=== PATIENT | male | born 1965 | race Caucasian/White ===

== ENCOUNTER 2022-03-29 09:30 | Inpatient (IN) | payer OTHER, SELFPAY ==
[2022-03-29] MEDS ORDERED: Thiamine HCl 200 MG/2 ML VIAL ONE (11:10)
[2022-03-29] MEDS ORDERED: Folic Acid 1 MG TAB ONE (11:10)
[2022-03-29 11:42] LABS: Acetaminophen Less than 10.0 mcg/mL (10.0-30.0); Alcohol Less than 10 mg/dL (Less than 10); Lipase 29 U/L (8-78); Salicylate Less than 8.0 mg/dL (15.0-30.0)
[2022-03-29 11:43] LABS: ALT (SGPT) 287 U/L (8-55); AST (SGOT) 1661 U/L (5-34); Albumin 2.7 g/dL (3.5-5.0); Alkaline Phosphatase 66 U/L (40-110); Anion Gap 26 mmol/L (10-20); BUN (Urea Nitrogen) 63 mg/dL (8.4-25.7); Bilirubin, Total 2.4 mg/dL (0.2-1.2); Calc. Creatinine Clearance 0 mL/min (70-130); Carbon Dioxide 12 mmol/L (22-29); Chloride 93 mmol/L (98-107); Estimated GFR 21; Globulin 2.5 g/dL (2.4-3.5); Glucose 89 mg/dL (70-105); Magnesium 1.6 mg/dL (1.6-2.6); Potassium 3.7 mmol/L (3.5-5.1); Protein, Total 5.2 g/dL (6.0-8.3); Sodium 127 mmol/L (136-145)
[2022-03-29] MEDS ORDERED: chlordiazePOXIDE HCl 25 MG CAP ONE (11:47)
[2022-03-29 11:55] LABS: Hemoglobin 15.8 g/dL (13.5-17.5); Mean Corpuscular HGB CONC 35.2 g/dL (32.0-36.0); Mean Corpuscular Hemoglobin 30.3 pg (27.0-33.0); Platelet Count 26 10x3/uL (150-450); RBC Distribution Width 14.3 % (11.5-14.5); Red Blood Cell (RBC) Count 5.14 10x6/uL (4.32-5.72); White Blood Cell (WBC) Count 4.6 10x3/uL (3.5-10.5)
[2022-03-29 12:03] LABS: Band 18 % (5-11); Eosinophils 1 % (0-10); Lymphocytes 3 % (21-51); Monocytes 6 % (0-10); Neutrophil 72 % (42-75)
[2022-03-29 12:07] LABS: MDiff Complete? YES
[2022-03-29 12:08] LABS: Platelet Morphology Comment Appears Decreased; RBC Morphology Normal
[2022-03-29] MEDS ORDERED: metroNIDAZOLE 500 MG/100 ML BAG ONE ×2 (12:14→23:01)
[2022-03-29 12:35] LABS: INR-International Normal Ratio 1.3; Prothrombin Time 13.9 sec (9.5-12.1)
[2022-03-29 15:02] LABS: Lactic Acid 6.8 mmol/L (0.5-2.2)
[2022-03-29 16:38] LABS: Bilirubin 3+ (Negative); Blood, Urine 250 (Negative); Clarity Cloudy (Clear); Glucose, Urine (Dipstick) Normal (Negative); Ketone, Urine 5 mg/dL (Negative); Leukocyte 25 (Negative); Nitrite Positive (Negative); Protein, Urine (Dipstick) 100 mg/dl (Neg-Trace)
[2022-03-29 16:47] LABS: Amphetamine Not Detected (NotDetected); Barbiturates Screen Not Detected (NotDetected); Benzodiazepine Screen Not Detected (NotDetected); Cocaine Metabolite Screen Not Detected (NotDetected); Methadone Not Detected (NotDetected); Methamphetamine Not Detected (NotDetected); Opiate Screen Detected (NotDetected); Oxycodone Screen Not Detected (NotDetected); Phencyclidine (PCP) Not Detected (NotDetected); THC/Cannabinoid Screen Not Detected (NotDetected); Tricyclic Screen Not Detected (NotDetected)
[2022-03-29 17:32] LABS: Bacteria/HPF 3+ HPF (None Seen)
[2022-03-29] MEDS ORDERED: Lorazepam 1 MG TAB PO PRN (19:04)
[2022-03-29] MEDS ORDERED: Ondansetron ODT 4 MG TAB PO PRN (19:04)
[2022-03-29] MEDS ORDERED: Lorazepam 2 MG/ML VIAL IM PRN (19:04)
[2022-03-29] MEDS ORDERED: Thiamine HCl 200 MG/2 ML VIAL SLOW IVP SCH (19:15)
[2022-03-29] MEDS ORDERED: Electrolyte Replacement Protocol 1 EACH FS SCH (19:15)
[2022-03-29] MEDS ORDERED: Lorazepam 1 MG TAB ONE (19:34)
[2022-03-29] MEDS ORDERED: Ondansetron PF 4 MG/2 ML Vial IVP PRN (20:33)
[2022-03-29] MEDS ORDERED: Famotidine/PF 20 mg/2ml Vial SLOW IVP SCH (21:00)
[2022-03-29] MEDS ORDERED: chlordiazePOXIDE HCl 25 MG CAP PO SCH ×2 (21:00→23:00)
[2022-03-29] MEDS: metroNIDAZOLE 500 MG in Premix Bag 1 BAG IVPB SCH (23:07)
[2022-03-29 23:23] LABS: Lactic Acid 4.6 mmol/L (0.5-2.2)
[2022-03-29] MEDS: Lorazepam 1 MG TAB PO SCH (23:35)
[2022-03-29] MEDS ORDERED: Lactated Ringer's 1,000 ML IV SCH (23:45)
[2022-03-29] MEDS ORDERED: VANCOMYCIN 1.75 GM/350 ML BAG IVPB SCH (23:45)
[2022-03-30] MEDS ORDERED: VANCOMYCIN 1.75 GM/350 ML BAG 1.75 GM in Premix Bag 1 BAG IVPB SCH (00:01)
[2022-03-30] MEDS ORDERED: Dextrose 50% Abboject 50 ML SYRINGE ONE (00:06)
[2022-03-30] MEDS: Dextrose 50% Abboject 50 ML SYRINGE SLOW IVP PRN ×2 (00:20→10:15)
[2022-03-30] MEDS: Cefepime 2 GM in Sodium Chloride 0.9% 100 ML IVPB SCH (01:52)
[2022-03-30] MEDS: Dextrose 5 % And 0.9 % NaCl 1,000 ML IV SCH ×2 (03:12→17:03)
[2022-03-30 04:35] LABS: #Monocytes 0.3 10x3/uL (0.0-1.1); %Basophils 0.4 % (0.0-2.0); %Eosinophils 0.1 % (0.0-6.0); %Lymphocytes 4.3 % (18.0-47.0); %Monocytes 4.5 % (0.0-10.0); %Neutrophils 88.5 % (40.0-75.0); Hemoglobin 14.7 g/dL (13.5-17.5); Mean Corpuscular HGB CONC 36.9 g/dL (32.0-36.0); Mean Corpuscular Hemoglobin 30.8 pg (27.0-33.0); Mean Corpuscular Volume 83.3 fl (81.2-95.1); Platelet Count 10 10x3/uL (150-450); RBC Distribution Width 14.2 % (11.5-14.5); Red Blood Cell (RBC) Count 4.78 10x6/uL (4.32-5.72); White Blood Cell (WBC) Count 6.7 10x3/uL (3.5-10.5)
[2022-03-30 04:36] LABS: MDiff Complete? YES
[2022-03-30 04:41] LABS: ALT (SGPT) 188 U/L (8-55); AST (SGOT) 787 U/L (5-34); Albumin 2.1 g/dL (3.5-5.0); Alkaline Phosphatase 64 U/L (40-110); Anion Gap 22 mmol/L (10-20); BUN (Urea Nitrogen) 71 mg/dL (8.4-25.7); Bilirubin, Total 3.5 mg/dL (0.2-1.2); Calc. Creatinine Clearance 30 mL/min (70-130); Calcium 7.6 mg/dL (7.8-10.44); Carbon Dioxide 13 mmol/L (22-29); Chloride 99 mmol/L (98-107); Estimated GFR 23; Globulin 2.3 g/dL (2.4-3.5); Glucose 68 mg/dL (70-105); Magnesium 1.5 mg/dL (1.6-2.6); Phosphorus 3.2 mg/dL (2.3-4.7); Potassium 3.4 mmol/L (3.5-5.1); Protein, Total 4.4 g/dL (6.0-8.3); Sodium 131 mmol/L (136-145)
[2022-03-30] MEDS: Lorazepam 1 MG TAB PO SCH ×4 (05:14→20:05)
[2022-03-30] MEDS ORDERED: Vancomycin DOSE BY LEVEL IVPB PRN (06:09)
[2022-03-30 06:38] LABS: Band 5 % (5-11); Eosinophils 1 % (0-10); Lymphocytes 2 % (21-51); Monocytes 28 % (0-10); Neutrophil 64 % (42-75)
[2022-03-30 06:45] LABS: Crenated RBC SLIGHT = 1-5 cells (100X) (None Seen); Platelet Morphology Comment Appears Decreased; Polychromasia SLIGHT = 2-3 cells (100X) (0-2/hpf); Schistocytes SLIGHT = 2-5 cells (100X) (0-1/hpf); Tear Drops SLIGHT = 2-5 cells (100X) (0-1/hpf)
[2022-03-30] MEDS: metroNIDAZOLE 500 MG in Premix Bag 1 BAG IVPB SCH ×3 (07:38→20:46)
[2022-03-30] MEDS: Thiamine HCl 200 MG/2 ML VIAL SLOW IVP SCH (10:29)
[2022-03-30] MEDS ORDERED: Sodium Chloride 0.9% 1,000 ML IV SCH (10:45)
[2022-03-30] MEDS ORDERED: Vancomycin 1 GM in Premix Bag 1 BAG IVPB SCH (12:00)
[2022-03-30] MEDS ORDERED: Magnesium 2 GM/50 ML(in water) 2 GM in Premix Bag 1 BAG IVPB SCH (12:00)
[2022-03-30] MEDS: Folic Acid 1 MG TAB PO SCH (12:51)
[2022-03-30] MEDS: Sodium Chloride 0.9% 1,000 ML IV SCH ×2 (12:51→17:02)
[2022-03-30] MEDS: chlordiazePOXIDE HCl 25 MG CAP PO SCH ×3 (12:51→20:05)
[2022-03-30] MEDS: Multivit, Therapeutic 1 TAB PO SCH (12:51)
[2022-03-30] MEDS ORDERED: Ciprofloxacin Lactate/D5W 200 MG in Premix Bag 1 BAG IVPB SCH (14:00)
[2022-03-30 15:01] LABS: Lactic Acid 4.1 mmol/L (0.5-2.2)
[2022-03-30 18:37] LABS: Lactic Acid 3.4 mmol/L (0.5-2.2)
[2022-03-30] MEDS ORDERED: Dextrose 50% Abboject 50 ML SYRINGE SLOW IVP PRN (19:03)
[2022-03-30] MEDS ORDERED: Lorazepam 1 MG TAB PO PRN (19:04)
[2022-03-30] MEDS: Famotidine/PF 20 mg/2ml Vial SLOW IVP SCH (20:57)
[2022-03-30] MEDS: Dextrose 5 %-0.45 % NaCl 1,000 ML IV SCH (22:30)
[2022-03-31 00:16] LABS: Vancomycin, Random 18.9 ug/mL (See Comment)
[2022-03-31] MEDS ORDERED: Vancomycin DOSE BY LEVEL IVPB PRN (00:36)
[2022-03-31] MEDS ORDERED: Acetylcysteine 800 MG/4 ML VIAL INH SCH (01:00)
[2022-03-31 01:38] LABS: SARS-CoV-2 NAA Rapid Test Not Detected (NotDetected)
[2022-03-31] MEDS: Ipratropium/Albuterol 3 ML NEB EZPAP PRN ×2 (02:30→08:15)
[2022-03-31] MEDS: Cefepime 2 GM in Sodium Chloride 0.9% 100 ML IVPB SCH (03:49)
[2022-03-31] MEDS: Lorazepam 1 MG TAB PO SCH ×3 (04:00→16:41)
[2022-03-31 05:22] LABS: Lactic Acid 3.3 mmol/L (0.5-2.2)
[2022-03-31 05:31] LABS: ALT (SGPT) 101 U/L (8-55); AST (SGOT) 249 U/L (5-34); Albumin 1.9 g/dL (3.5-5.0); Alkaline Phosphatase 64 U/L (40-110); Anion Gap 20 mmol/L (10-20); BUN (Urea Nitrogen) 84 mg/dL (8.4-25.7); Bilirubin, Total 2.5 mg/dL (0.2-1.2); Calc. Creatinine Clearance 28 mL/min (70-130); Calcium 7.7 mg/dL (7.8-10.44); Carbon Dioxide 13 mmol/L (22-29); Chloride 106 mmol/L (98-107); Estimated GFR 21; Globulin 2.5 g/dL (2.4-3.5); Glucose 118 mg/dL (70-105); Magnesium 2.2 mg/dL (1.6-2.6); Potassium 3.5 mmol/L (3.5-5.1); Protein, Total 4.4 g/dL (6.0-8.3); Sodium 135 mmol/L (136-145)
[2022-03-31 05:34] LABS: Hemoglobin 13.7 g/dL (13.5-17.5); Mean Corpuscular HGB CONC 36.2 g/dL (32.0-36.0); Mean Corpuscular Hemoglobin 29.9 pg (27.0-33.0); Mean Corpuscular Volume 82.5 fl (81.2-95.1); Platelet Count 11 10x3/uL (150-450); RBC Distribution Width 14.6 % (11.5-14.5); Red Blood Cell (RBC) Count 4.58 10x6/uL (4.32-5.72); White Blood Cell (WBC) Count 8.6 10x3/uL (3.5-10.5)
[2022-03-31] MEDS ORDERED: Vancomycin HCl 500 MG in Sodium Chloride 0.9% 100 ML IVPB SCH (05:45)
[2022-03-31 05:53] LABS: MDiff Complete? YES
[2022-03-31] MEDS: metroNIDAZOLE 500 MG in Premix Bag 1 BAG IVPB SCH ×3 (06:53→21:26)
[2022-03-31] MEDS: Dextrose 5 %-0.45 % NaCl 1,000 ML IV SCH ×2 (06:57→14:25)
[2022-03-31 07:09] LABS: Band 2 % (5-11); Lymphocytes 1 % (21-51); Monocytes 20 % (0-10); Neutrophil 76 % (42-75)
[2022-03-31 07:11] LABS: Crenated RBC SLIGHT = 1-5 cells (100X) (None Seen); Microcytosis SLIGHT = 6-15 cells (100X) (0-5/hpf)
[2022-03-31 07:12] LABS: Platelet Morphology Comment Appears Decreased
[2022-03-31] MEDS: Folic Acid 1 MG TAB PO SCH (08:00)
[2022-03-31] MEDS: chlordiazePOXIDE HCl 25 MG CAP PO SCH ×3 (08:00→21:26)
[2022-03-31] MEDS: Multivit, Therapeutic 1 TAB PO SCH (08:00)
[2022-03-31] MEDS: Thiamine HCl 200 MG/2 ML VIAL SLOW IVP SCH (09:26)
[2022-03-31] MEDS: Lorazepam 0.5 MG TAB PO SCH (16:42)
[2022-03-31] MEDS ORDERED: Lorazepam 1 MG TAB PO PRN (19:04)
[2022-03-31] MEDS: Famotidine/PF 20 mg/2ml Vial SLOW IVP SCH (21:26)
[2022-03-31] MEDS ORDERED: Sodium Bicarbonate 150 MEQ in Dextrose 5% in Water 1,000 ML IV SCH (23:59)
[2022-04-01] MEDS: Lorazepam 0.5 MG TAB PO SCH ×4 (01:00→17:58)
[2022-04-01] MEDS: Cefepime 2 GM in Sodium Chloride 0.9% 100 ML IVPB SCH ×2 (01:13→13:45)
[2022-04-01] MEDS: Dextrose 5 %-0.45 % NaCl 1,000 ML IV SCH (01:15)
[2022-04-01] MEDS: metroNIDAZOLE 500 MG in Premix Bag 1 BAG IVPB SCH ×3 (05:38→22:00)
[2022-04-01 06:19] LABS: Vancomycin, Random 12.3 ug/mL (See Comment)
[2022-04-01 06:24] LABS: ALT (SGPT) 68 U/L (8-55); AST (SGOT) 89 U/L (5-34); Alkaline Phosphatase 61 U/L (40-110); Anion Gap 14 mmol/L (10-20); BUN (Urea Nitrogen) 79 mg/dL (8.4-25.7); Bilirubin, Total 1.7 mg/dL (0.2-1.2); Calc. Creatinine Clearance 55 mL/min (70-130); Calcium 7.8 mg/dL (7.8-10.44); Carbon Dioxide 18 mmol/L (22-29); Chloride 113 mmol/L (98-107); Estimated GFR 48; Globulin 2.7 g/dL (2.4-3.5); Glucose 112 mg/dL (70-105); Magnesium 2.3 mg/dL (1.6-2.6); Potassium 2.9 mmol/L (3.5-5.1); Protein, Total 4.7 g/dL (6.0-8.3); Sodium 142 mmol/L (136-145)
[2022-04-01 06:26] LABS: Hemoglobin 12.2 g/dL (13.5-17.5); Mean Corpuscular HGB CONC 36.5 g/dL (32.0-36.0); Mean Corpuscular Hemoglobin 30.1 pg (27.0-33.0); Mean Corpuscular Volume 82.5 fl (81.2-95.1); Platelet Count 16 10x3/uL (150-450); Red Blood Cell (RBC) Count 4.05 10x6/uL (4.32-5.72); White Blood Cell (WBC) Count 8.9 10x3/uL (3.5-10.5)
[2022-04-01 06:44] LABS: MDiff Complete? YES
[2022-04-01 06:48] LABS: Band 11 % (5-11); Eosinophils 1 % (0-10); Lymphocytes 6 % (21-51); Monocytes 2 % (0-10); Neutrophil 80 % (42-75)
[2022-04-01 06:49] LABS: Platelet Morphology Comment Appears Decreased; RBC Morphology Normal
[2022-04-01] MEDS ORDERED: Thiamine 100 MG TAB PO SCH (09:00)
[2022-04-01] MEDS: Vancomycin HCl 1 GM in Sodium Chloride 0.9% 250 ML 250 ML IVPB SCH (09:18)
[2022-04-01] MEDS: Folic Acid 1 MG TAB PO SCH (09:18)
[2022-04-01] MEDS: Multivit, Therapeutic 1 TAB PO SCH (09:19)
[2022-04-01] MEDS ORDERED: Levothyroxine 100 MCG SDV IVP SCH (09:45)
[2022-04-01 09:53] LABS: Actual Bicarbonate (HCO3a) 20.6 mEq/L (22-28); Base Excess (BEa) -2.5 mEq/L (-2.0 to +3.0); CO2 Tension 30.7 mmHg (35.0-45.0); Calcium, Ionized (arterial) 1.14 mmol/L (1.12-1.30); Carboxyhemoglobin (COHb) 0.7 gm% (0.0-3.0); Hemoglobin (Hb) 12.8 g/dL (14.0-18.0); O2 Tension (PaO2), arterial 64.1 mmHg (80.0-100.0); Potassium - ABG Lab 2.9 mmol/L (3.70-5.30); Puncture Site RRA; pH, Arterial 7.44 (7.35-7.45)
[2022-04-01 09:57] LABS: ALV-art Gradient 47.255 mmHg (0-20)
[2022-04-01] MEDS ORDERED: Multivitamins, Adult 10 ML, Folic Acid 1 MG, Thiamine HCl 100 MG in Dextrose 5 %-0.45 %... IV SCH (10:00)
[2022-04-01] MEDS ORDERED: Furosemide 20 MG/2 ML VIAL SLOW IVP SCH (10:45)
[2022-04-01] MEDS ORDERED: Potassium Chloride 20 MEQ in Premix Bag 1 BAG IVPB SCH (10:45)
[2022-04-01] MEDS ORDERED: Thiamine HCl 200 MG/2 ML VIAL ONE (10:52)
[2022-04-01] MEDS ORDERED: Sodium Bicarb 50 MEQ/50 ML VIAL ONE (10:53)
[2022-04-01] MEDS ORDERED: Potassium Chloride 20 MEQ/100 ML PREMIX BAG ONE ×2 (10:53)
[2022-04-01] MEDS: Lorazepam 2 MG/ML VIAL SLOW IVP PRN ×2 (11:20→17:59)
[2022-04-01] MEDS ORDERED: Cefepime 2 GM VIAL ONE (13:41)
[2022-04-01] MEDS ORDERED: Acetaminophen 650 MG Suppository PR SCH (18:45)
[2022-04-01] MEDS ORDERED: Lorazepam 0.5 MG TAB PO PRN (19:04)
[2022-04-01] MEDS: Acetaminophen 650 MG Suppository PR PRN (21:58)
[2022-04-01] MEDS: Famotidine/PF 20 mg/2ml Vial SLOW IVP SCH (21:59)
[2022-04-01] MEDS ORDERED: Lactated Ringer's 1,000 ML IV SCH (22:00)
[2022-04-01] MEDS ORDERED: Potassium Phosphate 22 MMOL in Sodium Chloride 0.9% 250 ML 250 ML IVPB SCH (22:00)
[2022-04-01] MEDS: PHOS-NAK 1 PKT PACK PO SCH (23:17)
[2022-04-02] MEDS: Cefepime 2 GM in Sodium Chloride 0.9% 100 ML IVPB SCH ×2 (02:26→13:15)
[2022-04-02 04:47] LABS: Hemoglobin 12.1 g/dL (13.5-17.5); Mean Corpuscular HGB CONC 36.4 g/dL (32.0-36.0); Mean Corpuscular Hemoglobin 30.6 pg (27.0-33.0); Mean Corpuscular Volume 84.1 fl (81.2-95.1); Platelet Count 15 10x3/uL (150-450); RBC Distribution Width 15.1 % (11.5-14.5); Red Blood Cell (RBC) Count 3.95 10x6/uL (4.32-5.72); White Blood Cell (WBC) Count 7.9 10x3/uL (3.5-10.5)
[2022-04-02 04:49] LABS: ALT (SGPT) 47 U/L (8-55); AST (SGOT) 44 U/L (5-34); Albumin 1.8 g/dL (3.5-5.0); Alkaline Phosphatase 49 U/L (40-110); Anion Gap 13 mmol/L (10-20); BUN (Urea Nitrogen) 66 mg/dL (8.4-25.7); Bilirubin, Total 1.4 mg/dL (0.2-1.2); Calc. Creatinine Clearance 91 mL/min (70-130); Calcium 7.6 mg/dL (7.8-10.44); Carbon Dioxide 21 mmol/L (22-29); Chloride 119 mmol/L (98-107); Estimated GFR 88; Glucose 111 mg/dL (70-105); Magnesium 2.4 mg/dL (1.6-2.6); Phosphorus 4.6 mg/dL (2.3-4.7); Potassium 3.1 mmol/L (3.5-5.1); Protein, Total 4.8 g/dL (6.0-8.3); Sodium 150 mmol/L (136-145)
[2022-04-02] MEDS: metroNIDAZOLE 500 MG in Premix Bag 1 BAG IVPB SCH ×3 (05:26→21:01)
[2022-04-02 05:57] LABS: MDiff Complete? YES
[2022-04-02 06:04] LABS: Band 9 % (5-11); Lymphocytes 12 % (21-51); Monocytes 4 % (0-10); Neutrophil 75 % (42-75)
[2022-04-02 06:05] LABS: Platelet Morphology Comment Appears Decreased; RBC Morphology Normal
[2022-04-02] MEDS: Levothyroxine 100 MCG SDV IVP SCH (06:42)
[2022-04-02] MEDS ORDERED: Dextrose 5% in Water 1,000 ML IV SCH (08:15)
[2022-04-02] MEDS: Vancomycin HCl 1 GM in Sodium Chloride 0.9% 250 ML 250 ML IVPB SCH (09:40)
[2022-04-02] MEDS: PHOS-NAK 1 PKT PACK PO SCH ×2 (09:40→15:59)
[2022-04-02] MEDS: Famotidine/PF 20 mg/2ml Vial SLOW IVP SCH ×2 (09:42→21:01)
[2022-04-02] MEDS: Multivit, Therapeutic 1 TAB PO SCH (09:44)
[2022-04-02] MEDS: Thiamine HCl 100 MG, Admixture Fee 1 EACH in Sodium Chloride 0.9% 50 ML IVPB SCH (09:58)
[2022-04-02] MEDS: Potassium Chloride 40 MEQ, Admixture Fee 1 EACH in Dextrose 5% in Water 1,000 ML IV SCH ×2 (11:01→21:16)
[2022-04-02 14:16] LABS: Albumin 1.7 g/dL (3.5-5.0); Anion Gap 12 mmol/L (10-20); BUN (Urea Nitrogen) 61 mg/dL (8.4-25.7); BUN/Creatinine Ratio 75.31; Calc. Creatinine Clearance 112 mL/min (70-130); Calcium 7.5 mg/dL (7.8-10.44); Carbon Dioxide 22 mmol/L (22-29); Chloride 121 mmol/L (98-107); Estimated GFR 103; Glucose 115 mg/dL (70-105); Phosphorus 3.6 mg/dL (2.3-4.7); Sodium 152 mmol/L (136-145)
[2022-04-02] MEDS ORDERED: metroNIDAZOLE 500 MG/100 ML BAG ONE (15:02)
[2022-04-02] MEDS: Acetaminophen 650 MG Suppository PR PRN (21:16)
[2022-04-03] MEDS: Cefepime 2 GM in Sodium Chloride 0.9% 100 ML IVPB SCH ×2 (01:21→12:48)
[2022-04-03 05:30] LABS: #Monocytes 0.4 10x3/uL (0.0-1.1); #Neutrophils 9.8 10x3/uL (1.5-8.4); %Basophils 0.2 % (0.0-2.0); %Eosinophils 0.4 % (0.0-6.0); %Lymphocytes 8.7 % (18.0-47.0); %Monocytes 3.3 % (0.0-10.0); %Neutrophils 86.2 % (40.0-75.0); Hemoglobin 12.8 g/dL (13.5-17.5); Mean Corpuscular Hemoglobin 29.7 pg (27.0-33.0); Mean Corpuscular Volume 84.9 fl (81.2-95.1); Platelet Count 23 10x3/uL (150-450); RBC Distribution Width 15.4 % (11.5-14.5); Red Blood Cell (RBC) Count 4.31 10x6/uL (4.32-5.72); White Blood Cell (WBC) Count 11.3 10x3/uL (3.5-10.5)
[2022-04-03 05:32] LABS: ALT (SGPT) 34 U/L (8-55); AST (SGOT) 30 U/L (5-34); Albumin 1.7 g/dL (3.5-5.0); Alkaline Phosphatase 49 U/L (40-110); Anion Gap 11 mmol/L (10-20); BUN (Urea Nitrogen) 48 mg/dL (8.4-25.7); Bilirubin, Total 1.3 mg/dL (0.2-1.2); Calc. Creatinine Clearance 125 mL/min (70-130); Calcium 7.2 mg/dL (7.8-10.44); Carbon Dioxide 20 mmol/L (22-29); Chloride 124 mmol/L (98-107); Estimated GFR 106; Globulin 3.5 g/dL (2.4-3.5); Glucose 163 mg/dL (70-105); Potassium 3.5 mmol/L (3.5-5.1); Protein, Total 5.2 g/dL (6.0-8.3)
[2022-04-03 05:35] LABS: Sodium 151 mmol/L (136-145)
[2022-04-03] MEDS: metroNIDAZOLE 500 MG in Premix Bag 1 BAG IVPB SCH ×2 (05:52→14:45)
[2022-04-03] MEDS: Levothyroxine 100 MCG SDV IVP SCH (05:53)
[2022-04-03] MEDS: Potassium Chloride 40 MEQ, Admixture Fee 1 EACH in Dextrose 5% in Water 1,000 ML IV SCH ×2 (07:40→18:29)
[2022-04-03 07:59] LABS: Vancomycin, Trough 8.9 ug/mL
[2022-04-03] MEDS: Vancomycin HCl 1 GM in Sodium Chloride 0.9% 250 ML 250 ML IVPB SCH (08:22)
[2022-04-03] MEDS: Famotidine/PF 20 mg/2ml Vial SLOW IVP SCH ×2 (08:27→20:45)
[2022-04-03] MEDS: Thiamine HCl 100 MG, Admixture Fee 1 EACH in Sodium Chloride 0.9% 50 ML IVPB SCH (08:28)
[2022-04-03] MEDS ORDERED: Vancomycin HCl 1 GM in Sodium Chloride 0.9% 250 ML 250 ML IVPB SCH (09:00)
[2022-04-03] MEDS: Multivit, Therapeutic 1 TAB PO SCH (12:49)
[2022-04-03] MEDS: Acetaminophen 650 MG Suppository PR PRN ×2 (14:46→20:46)
[2022-04-04 00:10] LABS: Anion Gap 11 mmol/L (10-20); BUN (Urea Nitrogen) 40 mg/dL (8.4-25.7); Calc. Creatinine Clearance 138 mL/min (70-130); Carbon Dioxide 20 mmol/L (22-29); Chloride 122 mmol/L (98-107); Estimated GFR 109; Glucose 140 mg/dL (70-105); Potassium 3.8 mmol/L (3.5-5.1); Sodium 149 mmol/L (136-145)
[2022-04-04] MEDS: Cefepime 2 GM in Sodium Chloride 0.9% 100 ML IVPB SCH ×2 (00:19→13:21)
[2022-04-04 04:58] LABS: Hemoglobin 11.8 g/dL (13.5-17.5); Mean Corpuscular HGB CONC 34.5 g/dL (32.0-36.0); Mean Corpuscular Hemoglobin 30.2 pg (27.0-33.0); Mean Corpuscular Volume 87.2 fl (81.2-95.1); Platelet Count 35 10x3/uL (150-450); RBC Distribution Width 15.8 % (11.5-14.5); Red Blood Cell (RBC) Count 3.91 10x6/uL (4.32-5.72); White Blood Cell (WBC) Count 12.4 10x3/uL (3.5-10.5)
[2022-04-04 04:59] LABS: #Monocytes 0.3 10x3/uL (0.0-1.1); #Neutrophils 10.9 10x3/uL (1.5-8.4); %Basophils 0.2 % (0.0-2.0); %Eosinophils 0.3 % (0.0-6.0); %Monocytes 2.2 % (0.0-10.0); %Neutrophils 87.2 % (40.0-75.0)
[2022-04-04 05:07] LABS: ALT (SGPT) 25 U/L (8-55); AST (SGOT) 22 U/L (5-34); Albumin 1.7 g/dL (3.5-5.0); Alkaline Phosphatase 43 U/L (40-110); Anion Gap 12 mmol/L (10-20); BUN (Urea Nitrogen) 37 mg/dL (8.4-25.7); Bilirubin, Total 1.1 mg/dL (0.2-1.2); Calc. Creatinine Clearance 140 mL/min (70-130); Carbon Dioxide 19 mmol/L (22-29); Chloride 122 mmol/L (98-107); Estimated GFR 110; Globulin 3.5 g/dL (2.4-3.5); Glucose 133 mg/dL (70-105); Magnesium 2.2 mg/dL (1.6-2.6); Protein, Total 5.2 g/dL (6.0-8.3); Sodium 149 mmol/L (136-145)
[2022-04-04] MEDS: Potassium Chloride 40 MEQ, Admixture Fee 1 EACH in Dextrose 5% in Water 1,000 ML IV SCH ×3 (05:51→21:59)
[2022-04-04] MEDS: Levothyroxine 100 MCG SDV IVP SCH (06:33)
[2022-04-04] MEDS: Famotidine/PF 20 mg/2ml Vial SLOW IVP SCH ×2 (08:25→22:02)
[2022-04-04] MEDS: Multivit, Therapeutic 1 TAB PO SCH (08:26)
[2022-04-04] MEDS: Thiamine HCl 100 MG, Admixture Fee 1 EACH in Sodium Chloride 0.9% 50 ML IVPB SCH (08:29)
[2022-04-05] MEDS ORDERED: Chlorothiazide 50 MG/ML Oral Suspension PO SCH (01:30)
[2022-04-05] MEDS: Cefepime 2 GM in Sodium Chloride 0.9% 100 ML IVPB SCH ×2 (03:30→13:45)
[2022-04-05] MEDS: Potassium Chloride 40 MEQ, Admixture Fee 1 EACH in Dextrose 5% in Water 1,000 ML IV SCH ×2 (07:03→20:11)
[2022-04-05] MEDS: Levothyroxine 100 MCG SDV IVP SCH (07:03)
[2022-04-05] MEDS ORDERED: Lidocaine 1% PF 5 ML VIAL ONE (08:50)
[2022-04-05] MEDS ORDERED: Sodium Bicarbonate 2.5 MEQ/5 ML VIAL ONE (08:51)
[2022-04-05] MEDS: Famotidine/PF 20 mg/2ml Vial SLOW IVP SCH ×2 (08:54→21:10)
[2022-04-05] MEDS: Multivit, Therapeutic 1 TAB PO SCH (08:54)
[2022-04-05] MEDS: Thiamine HCl 100 MG, Admixture Fee 1 EACH in Sodium Chloride 0.9% 50 ML IVPB SCH (08:55)
[2022-04-05 09:04] LABS: Albumin 1.7 g/dL (3.5-5.0); Anion Gap 9 mmol/L (10-20); BUN (Urea Nitrogen) 29 mg/dL (8.4-25.7); BUN/Creatinine Ratio 50.88; Calc. Creatinine Clearance 160 mL/min (70-130); Calcium 7.3 mg/dL (7.8-10.44); Carbon Dioxide 19 mmol/L (22-29); Chloride 122 mmol/L (98-107); Estimated GFR 114; Glucose 114 mg/dL (70-105); Magnesium 1.9 mg/dL (1.6-2.6); Phosphorus 3.4 mg/dL (2.3-4.7); Potassium 4.1 mmol/L (3.5-5.1); Sodium 146 mmol/L (136-145)
[2022-04-05] MEDS ORDERED: Cefepime 2 GM VIAL ONE (16:03)
[2022-04-06] MEDS: Cefepime 2 GM in Sodium Chloride 0.9% 100 ML IVPB SCH ×2 (02:10→13:42)
[2022-04-06] MEDS: Acetaminophen 650 MG Suppository PR PRN ×2 (02:30→13:43)
[2022-04-06] MEDS ORDERED: Dextrose 50% Abboject 50 ML SYRINGE ONE (05:49)
[2022-04-06] MEDS: Potassium Chloride 40 MEQ, Admixture Fee 1 EACH in Dextrose 5% in Water 1,000 ML IV SCH ×2 (06:26→13:00)
[2022-04-06 06:37] LABS: ALT (SGPT) 15 U/L (8-55); AST (SGOT) 19 U/L (5-34); Albumin 1.7 g/dL (3.5-5.0); Alkaline Phosphatase 46 U/L (40-110); Anion Gap 9 mmol/L (10-20); BUN (Urea Nitrogen) 26 mg/dL (8.4-25.7); Calc. Creatinine Clearance 162 mL/min (70-130); Calcium 7.3 mg/dL (7.8-10.44); Carbon Dioxide 19 mmol/L (22-29); Chloride 124 mmol/L (98-107); Estimated GFR 115; Globulin 3.3 g/dL (2.4-3.5); Glucose 87 mg/dL (70-105); Potassium 4.4 mmol/L (3.5-5.1); Sodium 148 mmol/L (136-145)
[2022-04-06 06:38] LABS: #Monocytes 0.4 10x3/uL (0.0-1.1); #Neutrophils 13.3 10x3/uL (1.5-8.4); %Basophils 0.1 % (0.0-2.0); %Eosinophils 0.3 % (0.0-6.0); %Lymphocytes 5.5 % (18.0-47.0); %Monocytes 2.5 % (0.0-10.0); %Neutrophils 90.4 % (40.0-75.0); Mean Corpuscular HGB CONC 32.9 g/dL (32.0-36.0); Mean Corpuscular Hemoglobin 30.2 pg (27.0-33.0); Mean Corpuscular Volume 91.8 fl (81.2-95.1); Platelet Count 61 10x3/uL (150-450); RBC Distribution Width 15.3 % (11.5-14.5); Red Blood Cell (RBC) Count 3.31 10x6/uL (4.32-5.72); White Blood Cell (WBC) Count 14.7 10x3/uL (3.5-10.5)
[2022-04-06] MEDS: Levothyroxine 100 MCG SDV IVP SCH (07:18)
[2022-04-06 07:54] LABS: CRP (Inflammatory) 8.53 mg/dL (= or < 0.5)
[2022-04-06] MEDS: Multivit, Therapeutic 1 TAB PO SCH (09:35)
[2022-04-06] MEDS: Famotidine/PF 20 mg/2ml Vial SLOW IVP SCH ×2 (09:35→21:21)
[2022-04-06] MEDS: Thiamine HCl 100 MG, Admixture Fee 1 EACH in Sodium Chloride 0.9% 50 ML IVPB SCH (09:36)
[2022-04-07] MEDS: Potassium Chloride 40 MEQ, Admixture Fee 1 EACH in Dextrose 5% in Water 1,000 ML IV SCH ×3 (00:41→23:02)
[2022-04-07] MEDS: Acetaminophen 650 MG Suppository PR PRN ×2 (00:41→14:18)
[2022-04-07] MEDS: Cefepime 2 GM in Sodium Chloride 0.9% 100 ML IVPB SCH (00:41)
[2022-04-07] MEDS: Levothyroxine 100 MCG SDV IVP SCH (07:54)
[2022-04-07] MEDS: Famotidine/PF 20 mg/2ml Vial SLOW IVP SCH ×2 (10:33→23:03)
[2022-04-07] MEDS: Multivit, Therapeutic 1 TAB PO SCH (10:34)
[2022-04-07] MEDS: Thiamine HCl 100 MG, Admixture Fee 1 EACH in Sodium Chloride 0.9% 50 ML IVPB SCH (10:34)
[2022-04-07 13:51] LABS: Anion Gap 10 mmol/L (10-20); BUN (Urea Nitrogen) 21 mg/dL (8.4-25.7); Calc. Creatinine Clearance 165 mL/min (70-130); Calcium 7.3 mg/dL (7.8-10.44); Carbon Dioxide 17 mmol/L (22-29); Chloride 121 mmol/L (98-107); Estimated GFR 116; Glucose 133 mg/dL (70-105); Potassium 4.5 mmol/L (3.5-5.1); Sodium 143 mmol/L (136-145)
[2022-04-07] MEDS: CEFAZOLIN 2 GM in Sodium Chloride 0.9% 100 ML IVPB SCH ×2 (14:16→23:02)
[2022-04-08 04:32] LABS: Hemoglobin 9.8 g/dL (13.5-17.5); MDiff Complete? YES; Mean Corpuscular HGB CONC 32.9 g/dL (32.0-36.0); Mean Corpuscular Hemoglobin 30.4 pg (27.0-33.0); Mean Corpuscular Volume 92.5 fl (81.2-95.1); Mean Platelet Volume 13.2 fl (7.4-10.4); Platelet Count 104 10x3/uL (150-450); RBC Distribution Width 15.1 % (11.5-14.5); Red Blood Cell (RBC) Count 3.22 10x6/uL (4.32-5.72); White Blood Cell (WBC) Count 20.2 10x3/uL (3.5-10.5)
[2022-04-08 04:38] LABS: Anion Gap 10 mmol/L (10-20); BUN (Urea Nitrogen) 19 mg/dL (8.4-25.7); Calc. Creatinine Clearance 154 mL/min (70-130); Calcium 7.5 mg/dL (7.8-10.44); Carbon Dioxide 14 mmol/L (22-29); Chloride 125 mmol/L (98-107); Estimated GFR 113; Glucose 152 mg/dL (70-105); Potassium 4.4 mmol/L (3.5-5.1); Sodium 145 mmol/L (136-145)
[2022-04-08 04:57] LABS: Lymphocytes 9 % (21-51); Monocytes 2 % (0-10); Neutrophil 88 % (42-75); Reactive Lymphocytes 1 % (0-10)
[2022-04-08 04:58] LABS: Anisocytosis SLIGHT = 6-15 cells (100X) (0-5/hpf)
[2022-04-08 04:59] LABS: Platelet Morphology Comment Appears Decreased; Toxic Granulation SLIGHT
[2022-04-08] MEDS: Levothyroxine 100 MCG SDV IVP SCH (06:55)
[2022-04-08] MEDS: CEFAZOLIN 2 GM in Sodium Chloride 0.9% 100 ML IVPB SCH ×3 (06:55→21:45)
[2022-04-08] MEDS ORDERED: Potassium Chloride 40 MEQ, Admixture Fee 1 EACH in Dextrose 5% in Water 1,000 ML IV SCH (07:48)
[2022-04-08 09:31] LABS: Actual Bicarbonate (HCO3a) 16.5 mEq/L (22-28); Base Excess (BEa) -6.9 mEq/L (-2.0 to +3.0); CO2 Tension 26.8 mmHg (35.0-45.0); Calcium, Ionized (arterial) 1.12 mmol/L (1.12-1.30); Carboxyhemoglobin (COHb) 0.7 gm% (0.0-3.0); Hemoglobin (Hb) 11.6 g/dL (14.0-18.0); O2 Tension (PaO2), arterial 77.7 mmHg (80.0-100.0); Potassium - ABG Lab 4.3 mmol/L (3.70-5.30); Puncture Site RRA; pH, Arterial 7.41 (7.35-7.45)
[2022-04-08] MEDS: Potassium Chloride 40 MEQ, Admixture Fee 1 EACH in Dextrose 5% in Water 1,000 ML IV SCH ×2 (09:36→22:24)
[2022-04-08] MEDS: Multivit, Therapeutic 1 TAB PO SCH (09:36)
[2022-04-08] MEDS: Thiamine HCl 100 MG, Admixture Fee 1 EACH in Sodium Chloride 0.9% 50 ML IVPB SCH (09:36)
[2022-04-08] MEDS: Famotidine/PF 20 mg/2ml Vial SLOW IVP SCH ×2 (09:36→20:50)
[2022-04-08] MEDS ORDERED: Sodium Bicarbonate 150 MEQ, Admixture Fee 1 EACH in Dextrose 5% in Water 1,000 ML IV SCH (10:30)
[2022-04-08] MEDS: Acetaminophen 650 MG Suppository PR PRN (11:43)
[2022-04-08] MEDS: metroNIDAZOLE 500 MG in Premix Bag 1 BAG IVPB SCH ×2 (11:59→20:11)
[2022-04-08] MEDS ORDERED: Vancomycin 1.5 GRAM/300 ML BAG 1.5 GM in Premix Bag 1 BAG IVPB SCH (12:00)
[2022-04-08] MEDS: Vancomycin HCl 1 GM in Sodium Chloride 0.9% 250 ML 250 ML IVPB SCH (23:36)
[2022-04-09] MEDS ORDERED: Vancomycin HCl 125 MG/5 ML (BATCHED) UDCUP PER TUBE SCH ×2 (01:00→06:00)
[2022-04-09] MEDS: Acetaminophen 650 MG Suppository PR PRN (01:35)
[2022-04-09] MEDS: metroNIDAZOLE 500 MG in Premix Bag 1 BAG IVPB SCH ×3 (04:06→19:50)
[2022-04-09 04:13] LABS: Hemoglobin 6.9 g/dL (13.5-17.5); Mean Corpuscular HGB CONC 32.5 g/dL (32.0-36.0); Mean Corpuscular Hemoglobin 30.5 pg (27.0-33.0); Mean Corpuscular Volume 93.8 fl (81.2-95.1); Mean Platelet Volume 12.8 fl (7.4-10.4); Platelet Count 119 10x3/uL (150-450); RBC Distribution Width 15.2 % (11.5-14.5); Red Blood Cell (RBC) Count 2.26 10x6/uL (4.32-5.72); White Blood Cell (WBC) Count 15.6 10x3/uL (3.5-10.5)
[2022-04-09 04:14] LABS: MDiff Complete? YES
[2022-04-09 04:28] LABS: Anion Gap 10 mmol/L (10-20); BUN (Urea Nitrogen) 27 mg/dL (8.4-25.7); Calc. Creatinine Clearance 128 mL/min (70-130); Calcium 7.2 mg/dL (7.8-10.44); Carbon Dioxide 18 mmol/L (22-29); Chloride 123 mmol/L (98-107); Estimated GFR 107; Glucose 147 mg/dL (70-105); Potassium 3.7 mmol/L (3.5-5.1); Sodium 147 mmol/L (136-145)
[2022-04-09 04:37] LABS: Lymphocytes 10 % (21-51); Monocytes 5 % (0-10); Neutrophil 85 % (42-75)
[2022-04-09 04:38] LABS: Anisocytosis SLIGHT = 6-15 cells (100X) (0-5/hpf); Hypochromia SLIGHT = 6-15 cells (100X) (0-5/hpf); Platelet Morphology Comment Appears Decreased
[2022-04-09 04:53] LABS: Vancomycin, Trough 22.9 ug/mL
[2022-04-09] MEDS: Levothyroxine 100 MCG SDV IVP SCH (05:50)
[2022-04-09] MEDS: CEFAZOLIN 2 GM in Sodium Chloride 0.9% 100 ML IVPB SCH ×3 (05:52→21:24)
[2022-04-09] MEDS: Famotidine/PF 20 mg/2ml Vial SLOW IVP SCH ×2 (08:24→21:24)
[2022-04-09] MEDS: Thiamine HCl 100 MG, Admixture Fee 1 EACH in Sodium Chloride 0.9% 50 ML IVPB SCH (08:24)
[2022-04-09] MEDS: Multivit, Therapeutic 1 TAB PO SCH (08:24)
[2022-04-09] MEDS ORDERED: Iopamidol 300 61% 100 ML VIAL FS ONE (10:23)
[2022-04-09] MEDS: Vancomycin HCl 1 GM in Sodium Chloride 0.9% 250 ML 250 ML IVPB SCH (11:51)
[2022-04-09] MEDS: Potassium Chloride 40 MEQ, Admixture Fee 1 EACH in Dextrose 5% in Water 1,000 ML IV SCH (12:30)
[2022-04-09] MEDS: Nicotine 14 MG PATCH TD PRN (13:38)
[2022-04-09] MEDS: Vancomycin HCl 125 MG/5 ML (BATCHED) UDCUP PER TUBE SCH (18:09)
[2022-04-09 23:21] LABS: Vancomycin, Trough 16.7 ug/mL
[2022-04-10] MEDS: Vancomycin HCl 1 GM in Sodium Chloride 0.9% 250 ML 250 ML IVPB SCH ×3 (00:28→23:18)
[2022-04-10] MEDS: Vancomycin HCl 125 MG/5 ML (BATCHED) UDCUP PER TUBE SCH ×5 (00:29→23:18)
[2022-04-10] MEDS: Potassium Chloride 40 MEQ, Admixture Fee 1 EACH in Dextrose 5% in Water 1,000 ML IV SCH ×2 (02:47→18:45)
[2022-04-10 03:36] LABS: #Eosinphils 0.1 10x3/uL (0.0-0.5); #Monocytes 0.8 10x3/uL (0.0-1.1); %Basophils 0.2 % (0.0-2.0); %Eosinophils 0.5 % (0.0-6.0); %Lymphocytes 9.6 % (18.0-47.0); %Monocytes 6.2 % (0.0-10.0); %Neutrophils 82.9 % (40.0-75.0); Hemoglobin 9.1 g/dL (13.5-17.5); Mean Corpuscular HGB CONC 32.4 g/dL (32.0-36.0); Mean Corpuscular Hemoglobin 29.8 pg (27.0-33.0); Mean Corpuscular Volume 92.1 fl (81.2-95.1); Mean Platelet Volume 12.3 fl (7.4-10.4); Platelet Count 134 10x3/uL (150-450); RBC Distribution Width 15.2 % (11.5-14.5); Red Blood Cell (RBC) Count 3.05 10x6/uL (4.32-5.72)
[2022-04-10 03:47] LABS: Anion Gap 9 mmol/L (10-20); BUN (Urea Nitrogen) 27 mg/dL (8.4-25.7); Calc. Creatinine Clearance 125 mL/min (70-130); Carbon Dioxide 17 mmol/L (22-29); Chloride 122 mmol/L (98-107); Sodium 144 mmol/L (136-145)
[2022-04-10 03:48] LABS: Calcium 7.5 mg/dL (7.8-10.44); Estimated GFR 106; Glucose 147 mg/dL (70-105)
[2022-04-10] MEDS: metroNIDAZOLE 500 MG in Premix Bag 1 BAG IVPB SCH ×3 (03:49→19:50)
[2022-04-10] MEDS: Levothyroxine 100 MCG SDV IVP SCH (05:40)
[2022-04-10] MEDS: CEFAZOLIN 2 GM in Sodium Chloride 0.9% 100 ML IVPB SCH (05:41)
[2022-04-10] MEDS: Thiamine HCl 100 MG, Admixture Fee 1 EACH in Sodium Chloride 0.9% 50 ML IVPB SCH (10:15)
[2022-04-10] MEDS: Multivit, Therapeutic 1 TAB PO SCH (10:16)
[2022-04-10] MEDS: Famotidine/PF 20 mg/2ml Vial SLOW IVP SCH ×2 (10:16→21:15)
[2022-04-11] MEDS: Nicotine 14 MG PATCH TD PRN (01:06)
[2022-04-11] MEDS: metroNIDAZOLE 500 MG in Premix Bag 1 BAG IVPB SCH ×3 (03:26→20:00)
[2022-04-11 03:49] LABS: #Monocytes 0.6 10x3/uL (0.0-1.1); #Neutrophils 6.9 10x3/uL (1.5-8.4); %Basophils 0.4 % (0.0-2.0); %Eosinophils 0.4 % (0.0-6.0); %Lymphocytes 14.4 % (18.0-47.0); %Monocytes 6.8 % (0.0-10.0); %Neutrophils 77.3 % (40.0-75.0); Hemoglobin 8.6 g/dL (13.5-17.5); Mean Corpuscular HGB CONC 32.7 g/dL (32.0-36.0); Mean Corpuscular Volume 91.6 fl (81.2-95.1); Mean Platelet Volume 11.5 fl (7.4-10.4); Platelet Count 182 10x3/uL (150-450); Red Blood Cell (RBC) Count 2.87 10x6/uL (4.32-5.72)
[2022-04-11 04:06] LABS: Anion Gap 9 mmol/L (10-20); BUN (Urea Nitrogen) 22 mg/dL (8.4-25.7); Calc. Creatinine Clearance 125 mL/min (70-130); Calcium 7.6 mg/dL (7.8-10.44); Carbon Dioxide 17 mmol/L (22-29); Chloride 123 mmol/L (98-107); Estimated GFR 106; Glucose 83 mg/dL (70-105); Potassium 4.1 mmol/L (3.5-5.1); Sodium 145 mmol/L (136-145)
[2022-04-11] MEDS: Vancomycin HCl 125 MG/5 ML (BATCHED) UDCUP PER TUBE SCH ×4 (05:28→22:14)
[2022-04-11] MEDS: Levothyroxine 100 MCG SDV IVP SCH (05:28)
[2022-04-11] MEDS: Famotidine/PF 20 mg/2ml Vial SLOW IVP SCH ×2 (09:10→21:35)
[2022-04-11] MEDS: Thiamine HCl 100 MG, Admixture Fee 1 EACH in Sodium Chloride 0.9% 50 ML IVPB SCH (09:10)
[2022-04-11] MEDS: Potassium Chloride 40 MEQ, Admixture Fee 1 EACH in Dextrose 5% in Water 1,000 ML IV SCH (09:10)
[2022-04-11] MEDS: Multivit, Therapeutic 1 TAB PO SCH (09:11)
[2022-04-11 11:13] LABS: Vancomycin, Trough 23.7 ug/mL
[2022-04-11] MEDS ORDERED: Vancomycin HCl 750 MG in Sodium Chloride 0.9% 250 ML 250 ML IVPB SCH (12:00)
[2022-04-11] MEDS: Lidocaine 1% (PF) 30 ML VIAL ONE ×2 (13:30→14:18)
[2022-04-11] MEDS ORDERED: Lidocaine 1% 20 ML MDV FS SCH (14:00)
[2022-04-11] MEDS ORDERED: Labetalol HCl 100 MG/20 ML VIAL SLOW IVP SCH (21:15)
[2022-04-11] MEDS: CEFAZOLIN 2 GM in Sodium Chloride 0.9% 100 ML IVPB SCH (21:36)
[2022-04-12] MEDS: Potassium Chloride 40 MEQ, Admixture Fee 1 EACH in Dextrose 5% in Water 1,000 ML IV SCH ×3 (01:24→17:08)
[2022-04-12] MEDS: metroNIDAZOLE 500 MG in Premix Bag 1 BAG IVPB SCH ×3 (03:25→21:03)
[2022-04-12] MEDS ORDERED: Labetalol HCl 100 MG/20 ML VIAL SLOW IVP SCH (03:30)
[2022-04-12 05:10] LABS: Anion Gap 10 mmol/L (10-20); BUN (Urea Nitrogen) 19 mg/dL (8.4-25.7); Calc. Creatinine Clearance 118 mL/min (70-130); Calcium 7.5 mg/dL (7.8-10.44); Carbon Dioxide 18 mmol/L (22-29); Chloride 122 mmol/L (98-107); Estimated GFR 104; Glucose 94 mg/dL (70-105); Potassium 4.1 mmol/L (3.5-5.1); Sodium 146 mmol/L (136-145)
[2022-04-12] MEDS: Levothyroxine 100 MCG SDV IVP SCH (05:21)
[2022-04-12] MEDS: CEFAZOLIN 2 GM in Sodium Chloride 0.9% 100 ML IVPB SCH ×3 (05:21→21:54)
[2022-04-12 05:34] LABS: #Basophils 0.1 10x3/uL (0.0-0.2); #Monocytes 0.7 10x3/uL (0.0-1.1); #Neutrophils 6.3 10x3/uL (1.5-8.4); %Eosinophils 0.5 % (0.0-6.0); %Lymphocytes 14.5 % (18.0-47.0); %Monocytes 8.6 % (0.0-10.0); %Neutrophils 74.9 % (40.0-75.0); Hemoglobin 8.3 g/dL (13.5-17.5); Mean Corpuscular HGB CONC 32.7 g/dL (32.0-36.0); Mean Corpuscular Hemoglobin 30.1 pg (27.0-33.0); Mean Platelet Volume 11.3 fl (7.4-10.4); Platelet Count 214 10x3/uL (150-450); Red Blood Cell (RBC) Count 2.76 10x6/uL (4.32-5.72); White Blood Cell (WBC) Count 8.4 10x3/uL (3.5-10.5)
[2022-04-12] MEDS: Vancomycin HCl 125 MG/5 ML (BATCHED) UDCUP PER TUBE SCH ×3 (05:52→17:01)
[2022-04-12] MEDS: Multivit, Therapeutic 1 TAB PO SCH (08:10)
[2022-04-12] MEDS: Famotidine/PF 20 mg/2ml Vial SLOW IVP SCH ×2 (08:10→21:03)
[2022-04-12] MEDS: Thiamine HCl 100 MG, Admixture Fee 1 EACH in Sodium Chloride 0.9% 50 ML IVPB SCH (08:53)
[2022-04-12] MEDS: Dextrose 5% in Water 1,000 ML IV SCH (10:28)
[2022-04-12] MEDS: Acetaminophen 650 MG Suppository PR PRN (21:22)
[2022-04-12] MEDS: Acetaminophen 650 MG/20.3 ML UDCUP PO PRN (21:54)
[2022-04-13] MEDS: Vancomycin HCl 125 MG/5 ML (BATCHED) UDCUP PER TUBE SCH ×4 (01:06→17:00)
[2022-04-13 03:30] LABS: #Monocytes 0.9 10x3/uL (0.0-1.1); #Neutrophils 6.6 10x3/uL (1.5-8.4); %Basophils 0.4 % (0.0-2.0); %Eosinophils 0.4 % (0.0-6.0); %Lymphocytes 14.2 % (18.0-47.0); %Neutrophils 74.4 % (40.0-75.0); Hemoglobin 8.2 g/dL (13.5-17.5); Mean Corpuscular HGB CONC 31.8 g/dL (32.0-36.0); Mean Corpuscular Hemoglobin 29.3 pg (27.0-33.0); Mean Corpuscular Volume 92.1 fl (81.2-95.1); Mean Platelet Volume 10.9 fl (7.4-10.4); Platelet Count 234 10x3/uL (150-450); White Blood Cell (WBC) Count 8.9 10x3/uL (3.5-10.5)
[2022-04-13 03:39] LABS: Anion Gap 9 mmol/L (10-20); BUN (Urea Nitrogen) 17 mg/dL (8.4-25.7); Calc. Creatinine Clearance 111 mL/min (70-130); Calcium 7.6 mg/dL (7.8-10.44); Carbon Dioxide 19 mmol/L (22-29); Chloride 115 mmol/L (98-107); Estimated GFR 102; Glucose 188 mg/dL (70-105); Potassium 4.4 mmol/L (3.5-5.1); Sodium 139 mmol/L (136-145)
[2022-04-13] MEDS: metroNIDAZOLE 500 MG in Premix Bag 1 BAG IVPB SCH ×3 (04:33→20:16)
[2022-04-13] MEDS: Levothyroxine 100 MCG SDV IVP SCH (06:00)
[2022-04-13] MEDS: CEFAZOLIN 2 GM in Sodium Chloride 0.9% 100 ML IVPB SCH ×3 (06:00→22:40)
[2022-04-13] MEDS: Potassium Chloride 40 MEQ, Admixture Fee 1 EACH in Dextrose 5% in Water 1,000 ML IV SCH ×3 (06:57→22:08)
[2022-04-13] MEDS: Dextrose 5% in Water 1,000 ML IV SCH (07:34)
[2022-04-13] MEDS: Thiamine HCl 100 MG, Admixture Fee 1 EACH in Sodium Chloride 0.9% 50 ML IVPB SCH (07:37)
[2022-04-13] MEDS: Multivit, Therapeutic 1 TAB PO SCH (07:39)
[2022-04-13] MEDS: Famotidine/PF 20 mg/2ml Vial SLOW IVP SCH ×2 (07:39→20:17)
[2022-04-13] MEDS: Acetaminophen 650 MG/20.3 ML UDCUP PO PRN (08:12)
[2022-04-14] MEDS: Vancomycin HCl 125 MG/5 ML (BATCHED) UDCUP PER TUBE SCH ×5 (00:15→22:48)
[2022-04-14] MEDS: Acetaminophen 650 MG/20.3 ML UDCUP PO PRN ×3 (00:28→20:52)
[2022-04-14] MEDS: metroNIDAZOLE 500 MG in Premix Bag 1 BAG IVPB SCH ×3 (05:01→20:37)
[2022-04-14 05:31] LABS: #Eosinphils 0.1 10x3/uL (0.0-0.5); #Monocytes 1.1 10x3/uL (0.0-1.1); #Neutrophils 9.3 10x3/uL (1.5-8.4); %Basophils 0.3 % (0.0-2.0); %Eosinophils 0.7 % (0.0-6.0); %Lymphocytes 11.6 % (18.0-47.0); %Monocytes 9.4 % (0.0-10.0); %Neutrophils 77.4 % (40.0-75.0); Hemoglobin 8.1 g/dL (13.5-17.5); Mean Corpuscular HGB CONC 32.3 g/dL (32.0-36.0); Mean Platelet Volume 11.3 fl (7.4-10.4); Platelet Count 253 10x3/uL (150-450); RBC Distribution Width 15.3 % (11.5-14.5)
[2022-04-14 05:36] LABS: Anion Gap 10 mmol/L (10-20); BUN (Urea Nitrogen) 17 mg/dL (8.4-25.7); Calc. Creatinine Clearance 113 mL/min (70-130); Calcium 7.7 mg/dL (7.8-10.44); Carbon Dioxide 20 mmol/L (22-29); Chloride 111 mmol/L (98-107); Estimated GFR 104; Glucose 139 mg/dL (70-105); Potassium 4.7 mmol/L (3.5-5.1); Sodium 136 mmol/L (136-145)
[2022-04-14] MEDS: CEFAZOLIN 2 GM in Sodium Chloride 0.9% 100 ML IVPB SCH ×3 (05:36→22:48)
[2022-04-14] MEDS: Levothyroxine 100 MCG SDV IVP SCH (05:37)
[2022-04-14] MEDS ORDERED: Electrolyte Replacement Protocol 1 EACH FS SCH (08:30)
[2022-04-14 09:05] LABS: Magnesium 1.5 mg/dL (1.6-2.6)
[2022-04-14] MEDS: Multivit, Therapeutic 1 TAB PO SCH (09:50)
[2022-04-14] MEDS: Thiamine HCl 100 MG, Admixture Fee 1 EACH in Sodium Chloride 0.9% 50 ML IVPB SCH (09:50)
[2022-04-14] MEDS: Famotidine/PF 20 mg/2ml Vial SLOW IVP SCH ×2 (09:50→20:37)
[2022-04-14] MEDS ORDERED: Magnesium 2 GM/50 ML(in water) 2 GM in Premix Bag 1 BAG IVPB SCH (10:30)
[2022-04-15] MEDS: metroNIDAZOLE 500 MG in Premix Bag 1 BAG IVPB SCH ×3 (04:22→20:40)
[2022-04-15 05:28] LABS: #Eosinphils 0.1 10x3/uL (0.0-0.5); #Monocytes 0.9 10x3/uL (0.0-1.1); #Neutrophils 8.3 10x3/uL (1.5-8.4); %Basophils 0.4 % (0.0-2.0); %Lymphocytes 9.7 % (18.0-47.0); %Monocytes 8.5 % (0.0-10.0); %Neutrophils 79.9 % (40.0-75.0); Hemoglobin 8.7 g/dL (13.5-17.5); Mean Corpuscular Hemoglobin 29.4 pg (27.0-33.0); Mean Corpuscular Volume 91.9 fl (81.2-95.1); Mean Platelet Volume 10.9 fl (7.4-10.4); Platelet Count 237 10x3/uL (150-450); RBC Distribution Width 15.7 % (11.5-14.5); Red Blood Cell (RBC) Count 2.96 10x6/uL (4.32-5.72); White Blood Cell (WBC) Count 10.3 10x3/uL (3.5-10.5)
[2022-04-15] MEDS: CEFAZOLIN 2 GM in Sodium Chloride 0.9% 100 ML IVPB SCH ×3 (05:35→22:46)
[2022-04-15 05:39] LABS: Anion Gap 11 mmol/L (10-20); BUN (Urea Nitrogen) 18 mg/dL (8.4-25.7); Calc. Creatinine Clearance 116 mL/min (70-130); Calcium 7.8 mg/dL (7.8-10.44); Carbon Dioxide 21 mmol/L (22-29); Chloride 111 mmol/L (98-107); Estimated GFR 105; Glucose 112 mg/dL (70-105); Magnesium 1.9 mg/dL (1.6-2.6); Potassium 4.3 mmol/L (3.5-5.1); Sodium 139 mmol/L (136-145)
[2022-04-15] MEDS: Levothyroxine 100 MCG SDV IVP SCH (07:11)
[2022-04-15] MEDS ORDERED: Magnesium 2 GM/50 ML(in water) 2 GM in Premix Bag 1 BAG IVPB SCH (08:00)
[2022-04-15] MEDS: Famotidine/PF 20 mg/2ml Vial SLOW IVP SCH (09:26)
[2022-04-15] MEDS: Vancomycin HCl 125 MG/5 ML (BATCHED) UDCUP PER TUBE SCH ×4 (09:26→20:35)
[2022-04-15] MEDS: Multivit, Therapeutic 1 TAB PO SCH (09:26)
[2022-04-15] MEDS: Thiamine HCl 100 MG, Admixture Fee 1 EACH in Sodium Chloride 0.9% 50 ML IVPB SCH (09:29)
[2022-04-15] MEDS ORDERED: Furosemide 40 MG/4 ML VIAL SLOW IVP SCH (14:30)
[2022-04-16] MEDS: metroNIDAZOLE 500 MG in Premix Bag 1 BAG IVPB SCH ×2 (04:55→15:15)
[2022-04-16 05:29] LABS: #Monocytes 1.1 10x3/uL (0.0-1.1); %Basophils 0.2 % (0.0-2.0); %Eosinophils 0.1 % (0.0-6.0); %Lymphocytes 9.2 % (18.0-47.0); %Monocytes 8.4 % (0.0-10.0); %Neutrophils 81.3 % (40.0-75.0); Hemoglobin 7.9 g/dL (13.5-17.5); Mean Corpuscular HGB CONC 33.2 g/dL (32.0-36.0); Mean Corpuscular Volume 90.5 fl (81.2-95.1); Mean Platelet Volume 10.7 fl (7.4-10.4); Platelet Count 275 10x3/uL (150-450); RBC Distribution Width 16.2 % (11.5-14.5); Red Blood Cell (RBC) Count 2.63 10x6/uL (4.32-5.72); White Blood Cell (WBC) Count 13.6 10x3/uL (3.5-10.5)
[2022-04-16 05:42] LABS: ALT (SGPT) Less than 6 U/L (8-55); AST (SGOT) 13 U/L (5-34); Albumin 1.8 g/dL (3.5-5.0); Alkaline Phosphatase 47 U/L (40-110); Anion Gap 12 mmol/L (10-20); BUN (Urea Nitrogen) 18 mg/dL (8.4-25.7); Bilirubin, Total 0.4 mg/dL (0.2-1.2); Calc. Creatinine Clearance 117 mL/min (70-130); Calcium 7.8 mg/dL (7.8-10.44); Carbon Dioxide 22 mmol/L (22-29); Chloride 111 mmol/L (98-107); Estimated GFR 106; Globulin 3.7 g/dL (2.4-3.5); Glucose 93 mg/dL (70-105); Magnesium 1.9 mg/dL (1.6-2.6); Phosphorus 4.5 mg/dL (2.3-4.7); Potassium 3.9 mmol/L (3.5-5.1); Protein, Total 5.5 g/dL (6.0-8.3); Sodium 141 mmol/L (136-145)
[2022-04-16] MEDS: Levothyroxine 100 MCG SDV IVP SCH (06:24)
[2022-04-16] MEDS: CEFAZOLIN 2 GM in Sodium Chloride 0.9% 100 ML IVPB SCH ×3 (06:50→22:23)
[2022-04-16] MEDS: Vancomycin HCl 125 MG/5 ML (BATCHED) UDCUP PER TUBE SCH (07:59)
[2022-04-16] MEDS ORDERED: Magnesium 2 GM/50 ML(in water) 2 GM in Premix Bag 1 BAG IVPB SCH (15:00)
[2022-04-16] MEDS: Thiamine HCl 100 MG, Admixture Fee 1 EACH in Sodium Chloride 0.9% 50 ML IVPB SCH (15:06)
[2022-04-16] MEDS: Multivit, Therapeutic 1 TAB PO SCH (15:13)
[2022-04-16] MEDS: Furosemide 20 MG/2 ML VIAL SLOW IVP SCH (15:15)
[2022-04-16] MEDS: Lansoprazole 3 MG/ML ORAL SUSPENSION PER TUBE SCH (15:15)
[2022-04-16] MEDS: Magnesium 2 GM/50 ML(in water) 2 GM in Premix Bag 1 BAG IVPB SCH ×2 (15:37→15:38)
[2022-04-16] MEDS: Cyanocobalamin (Vitamin B-12) 1,000 MCG TAB PO SCH (22:16)
[2022-04-17 06:26] LABS: #Monocytes 1.2 10x3/uL (0.0-1.1); #Neutrophils 13.1 10x3/uL (1.5-8.4); %Basophils 0.2 % (0.0-2.0); %Eosinophils 0.2 % (0.0-6.0); %Lymphocytes 9.4 % (18.0-47.0); %Monocytes 7.4 % (0.0-10.0); %Neutrophils 81.4 % (40.0-75.0); Anion Gap 13 mmol/L (10-20); BUN (Urea Nitrogen) 23 mg/dL (8.4-25.7); Calc. Creatinine Clearance 121 mL/min (70-130); Calcium 7.8 mg/dL (7.8-10.44); Carbon Dioxide 22 mmol/L (22-29); Chloride 112 mmol/L (98-107); Estimated GFR 107; Glucose 118 mg/dL (70-105); Hemoglobin 8.6 g/dL (13.5-17.5); Mean Corpuscular HGB CONC 32.6 g/dL (32.0-36.0); Mean Platelet Volume 10.4 fl (7.4-10.4); Phosphorus 5.5 mg/dL (2.3-4.7); Platelet Count 324 10x3/uL (150-450); Potassium 3.7 mmol/L (3.5-5.1); RBC Distribution Width 16.3 % (11.5-14.5); Red Blood Cell (RBC) Count 2.87 10x6/uL (4.32-5.72); Sodium 143 mmol/L (136-145)
[2022-04-17] MEDS: CEFAZOLIN 2 GM in Sodium Chloride 0.9% 100 ML IVPB SCH ×3 (07:22→23:57)
[2022-04-17] MEDS: Levothyroxine 100 MCG SDV IVP SCH (07:47)
[2022-04-17] MEDS ORDERED: Magnesium 2 GM/50 ML(in water) 2 GM in Premix Bag 1 BAG IVPB SCH (09:00)
[2022-04-17] MEDS: Thiamine HCl 100 MG, Admixture Fee 1 EACH in Sodium Chloride 0.9% 50 ML IVPB SCH (10:35)
[2022-04-17] MEDS: Folic Acid 1 MG TAB PO SCH (10:36)
[2022-04-17] MEDS: Multivit, Therapeutic 1 TAB PO SCH (10:38)
[2022-04-17] MEDS: Lansoprazole 3 MG/ML ORAL SUSPENSION PER TUBE SCH (10:40)
[2022-04-17] MEDS: Furosemide 20 MG/2 ML VIAL SLOW IVP SCH (10:56)
[2022-04-17] MEDS ORDERED: Amino Acids 4.25 %/Dextrose 5% 1,000 ML IV SCH (14:00)
[2022-04-17] MEDS: Acetaminophen 325 MG TAB PO PRN ×2 (14:45→22:25)
[2022-04-17] MEDS: Potassium Chloride 20 MEQ TAB PO SCH (16:59)
[2022-04-17] MEDS: Saccharomyces boulardii 250 MG CAP PO SCH (22:00)
[2022-04-17] MEDS: Cyanocobalamin (Vitamin B-12) 1,000 MCG TAB PO SCH (22:00)
[2022-04-18 05:40] LABS: Hemoglobin 8.3 g/dL (13.5-17.5); Mean Corpuscular HGB CONC 32.8 g/dL (32.0-36.0); Mean Corpuscular Hemoglobin 30.4 pg (27.0-33.0); Mean Corpuscular Volume 92.7 fl (81.2-95.1); Mean Platelet Volume 9.9 fl (7.4-10.4); Platelet Count 357 10x3/uL (150-450); RBC Distribution Width 16.8 % (11.5-14.5); Red Blood Cell (RBC) Count 2.73 10x6/uL (4.32-5.72); White Blood Cell (WBC) Count 21.3 10x3/uL (3.5-10.5)
[2022-04-18 05:48] LABS: Anion Gap 12 mmol/L (10-20); BUN (Urea Nitrogen) 21 mg/dL (8.4-25.7); Calc. Creatinine Clearance 122 mL/min (70-130); Calcium 7.6 mg/dL (7.8-10.44); Carbon Dioxide 23 mmol/L (22-29); Chloride 109 mmol/L (98-107); Estimated GFR 107; Glucose 113 mg/dL (70-105); Potassium 3.3 mmol/L (3.5-5.1); Sodium 141 mmol/L (136-145)
[2022-04-18 05:59] LABS: Phosphorus 3.9 mg/dL (2.3-4.7)
[2022-04-18] MEDS ORDERED: Magnesium 2 GM/50 ML(in water) 2 GM in Premix Bag 1 BAG IVPB SCH ×2 (06:00→11:00)
[2022-04-18] MEDS ORDERED: Levothyroxine 150 MCG TAB PO SCH (06:00)
[2022-04-18 06:03] LABS: MDiff Complete? YES
[2022-04-18 06:07] LABS: Band 7 % (5-11); Eosinophils 1 % (0-10); Lymphocytes 4 % (21-51); Monocytes 2 % (0-10); Neutrophil 86 % (42-75); Platelet Morphology Comment Appears Adequate
[2022-04-18 06:08] LABS: RBC Morphology Normal
[2022-04-18] MEDS: Levothyroxine Sodium 75 MCG TAB PO SCH (06:32)
[2022-04-18] MEDS: CEFAZOLIN 2 GM in Sodium Chloride 0.9% 100 ML IVPB SCH ×2 (06:40→14:18)
[2022-04-18] MEDS ORDERED: Potassium Chloride 20 MEQ TAB PO SCH (08:00)
[2022-04-18] MEDS: Lansoprazole 3 MG/ML ORAL SUSPENSION PER TUBE SCH (10:28)
[2022-04-18] MEDS: Multivit, Therapeutic 1 TAB PO SCH (10:29)
[2022-04-18] MEDS: Folic Acid 1 MG TAB PO SCH (10:29)
[2022-04-18] MEDS: Acetaminophen 325 MG TAB PO PRN (10:30)
[2022-04-18] MEDS: Thiamine 100 MG TAB PO SCH (10:30)
[2022-04-18] MEDS: Potassium Chloride 20 MEQ TAB PO SCH ×2 (10:32→17:37)
[2022-04-18] MEDS: Furosemide 20 MG/2 ML VIAL SLOW IVP SCH (10:33)
[2022-04-18] MEDS: Melatonin 3 MG TAB PO SCH (22:00)
[2022-04-18] MEDS: Saccharomyces boulardii 250 MG CAP PO SCH (22:00)
[2022-04-18] MEDS: Cyanocobalamin (Vitamin B-12) 1,000 MCG TAB PO SCH (22:00)
[2022-04-19] MEDS: CEFAZOLIN 2 GM in Sodium Chloride 0.9% 100 ML IVPB SCH ×4 (00:25→21:49)
[2022-04-19 05:14] LABS: Hemoglobin 8.1 g/dL (13.5-17.5); Mean Corpuscular HGB CONC 31.6 g/dL (32.0-36.0); Mean Corpuscular Hemoglobin 29.9 pg (27.0-33.0); Mean Corpuscular Volume 94.5 fl (81.2-95.1); Mean Platelet Volume 10.1 fl (7.4-10.4); Platelet Count 341 10x3/uL (150-450); RBC Distribution Width 16.8 % (11.5-14.5); Red Blood Cell (RBC) Count 2.71 10x6/uL (4.32-5.72); White Blood Cell (WBC) Count 22.9 10x3/uL (3.5-10.5)
[2022-04-19 05:16] LABS: ALT (SGPT) Less than 6 U/L (8-55); AST (SGOT) 14 U/L (5-34); Albumin 1.9 g/dL (3.5-5.0); Alkaline Phosphatase 46 U/L (40-110); Anion Gap 12 mmol/L (10-20); BUN (Urea Nitrogen) 18 mg/dL (8.4-25.7); Bilirubin, Total 0.3 mg/dL (0.2-1.2); Calc. Creatinine Clearance 133 mL/min (70-130); Calcium 7.6 mg/dL (7.8-10.44); Carbon Dioxide 24 mmol/L (22-29); Chloride 108 mmol/L (98-107); Estimated GFR 110; Globulin 3.5 g/dL (2.4-3.5); Glucose 114 mg/dL (70-105); Magnesium 1.9 mg/dL (1.6-2.6); Potassium 3.9 mmol/L (3.5-5.1); Protein, Total 5.4 g/dL (6.0-8.3); Sodium 140 mmol/L (136-145)
[2022-04-19] MEDS ORDERED: Magnesium 2 GM/50 ML(in water) 2 GM in Premix Bag 1 BAG IVPB SCH (06:00)
[2022-04-19 06:12] LABS: MDiff Complete? YES
[2022-04-19] MEDS: Levothyroxine Sodium 75 MCG TAB PO SCH (06:14)
[2022-04-19 06:18] LABS: Band 3 % (5-11); Lymphocytes 7 % (21-51); Monocytes 5 % (0-10); Neutrophil 85 % (42-75)
[2022-04-19 06:19] LABS: Anisocytosis MODERATE=16-30 cells (100X) (0-5/hpf); Macrocytosis SLIGHT = 6-15 cells (100X) (0-5/hpf); Microcytosis SLIGHT = 6-15 cells (100X) (0-5/hpf); Polychromasia SLIGHT = 2-3 cells (100X) (0-2/hpf)
[2022-04-19 06:21] LABS: Platelet Morphology Comment Appears Adequate
[2022-04-19] MEDS: Furosemide 20 MG/2 ML VIAL SLOW IVP SCH (14:38)
[2022-04-19] MEDS: Multivit, Therapeutic 1 TAB PO SCH (14:38)
[2022-04-19] MEDS: Potassium Chloride 20 MEQ TAB PO SCH ×2 (14:39→17:00)
[2022-04-19] MEDS: Thiamine 100 MG TAB PO SCH (14:39)
[2022-04-19] MEDS: Folic Acid 1 MG TAB PO SCH (14:39)
[2022-04-19] MEDS: Famotidine 20 MG TAB PO SCH ×2 (14:39→21:49)
[2022-04-19] MEDS: Acetaminophen 325 MG TAB PO PRN ×2 (14:40→21:50)
[2022-04-19] MEDS: Saccharomyces boulardii 250 MG CAP PO SCH (21:49)
[2022-04-19] MEDS: Cyanocobalamin (Vitamin B-12) 1,000 MCG TAB PO SCH (21:49)
[2022-04-19] MEDS: Melatonin 3 MG TAB PO SCH (21:50)
[2022-04-20] MEDS: Acetaminophen 325 MG TAB PO PRN (02:11)
[2022-04-20 05:12] LABS: Anion Gap 13 mmol/L (10-20); BUN (Urea Nitrogen) 17 mg/dL (8.4-25.7); Calc. Creatinine Clearance 131 mL/min (70-130); Calcium 7.8 mg/dL (7.8-10.44); Carbon Dioxide 23 mmol/L (22-29); Chloride 107 mmol/L (98-107); Estimated GFR 109; Glucose 124 mg/dL (70-105); Potassium 4.4 mmol/L (3.5-5.1); Sodium 139 mmol/L (136-145)
[2022-04-20] MEDS: CEFAZOLIN 2 GM in Sodium Chloride 0.9% 100 ML IVPB SCH ×3 (05:19→22:50)
[2022-04-20] MEDS: Levothyroxine Sodium 75 MCG TAB PO SCH (05:19)
[2022-04-20 05:45] LABS: Hemoglobin 8.6 g/dL (13.5-17.5); Mean Corpuscular HGB CONC 31.3 g/dL (32.0-36.0); Mean Corpuscular Hemoglobin 30.1 pg (27.0-33.0); Mean Corpuscular Volume 96.2 fl (81.2-95.1); Mean Platelet Volume 10.1 fl (7.4-10.4); Platelet Count 387 10x3/uL (150-450); RBC Distribution Width 17.4 % (11.5-14.5); Red Blood Cell (RBC) Count 2.86 10x6/uL (4.32-5.72); White Blood Cell (WBC) Count 30.4 10x3/uL (3.5-10.5)
[2022-04-20 06:26] LABS: MDiff Complete? YES
[2022-04-20 06:34] LABS: Band 1 % (5-11); Eosinophils 1 % (0-10); Lymphocytes 3 % (21-51); Monocytes 4 % (0-10); Nucleated RBC 1 % (0)
[2022-04-20 06:39] LABS: Platelet Morphology Comment Appears Adequate; RBC Morphology Normal
[2022-04-20 06:41] LABS: Neutrophil 91 % (42-75)
[2022-04-20] MEDS: Folic Acid 1 MG TAB PO SCH (09:05)
[2022-04-20] MEDS: Famotidine 20 MG TAB PO SCH ×2 (09:05→21:33)
[2022-04-20] MEDS: Multivit, Therapeutic 1 TAB PO SCH (09:05)
[2022-04-20] MEDS: Potassium Chloride 20 MEQ TAB PO SCH ×2 (09:05→17:51)
[2022-04-20] MEDS: Thiamine 100 MG TAB PO SCH (09:05)
[2022-04-20] MEDS: Furosemide 20 MG/2 ML VIAL SLOW IVP SCH ×2 (09:05→13:40)
[2022-04-20] MEDS: Ipratropium/Albuterol 3 ML NEB EZPAP PRN (11:20)
[2022-04-20] MEDS: Melatonin 3 MG TAB PO SCH (21:33)
[2022-04-20] MEDS: Cyanocobalamin (Vitamin B-12) 1,000 MCG TAB PO SCH (21:33)
[2022-04-20] MEDS: Saccharomyces boulardii 250 MG CAP PO SCH (21:34)
[2022-04-20] MEDS: Heparin 5,000 UNITS/ML VIAL SC SCH (22:00)
[2022-04-21 05:40] LABS: Anion Gap 15 mmol/L (10-20); BUN (Urea Nitrogen) 16 mg/dL (8.4-25.7); Calc. Creatinine Clearance 136 mL/min (70-130); Calcium 7.6 mg/dL (7.8-10.44); Carbon Dioxide 24 mmol/L (22-29); Chloride 105 mmol/L (98-107); Estimated GFR 111; Glucose 104 mg/dL (70-105); Magnesium 1.6 mg/dL (1.6-2.6); Phosphorus 3.8 mg/dL (2.3-4.7); Potassium 4.5 mmol/L (3.5-5.1); Sodium 139 mmol/L (136-145)
[2022-04-21] MEDS: CEFAZOLIN 2 GM in Sodium Chloride 0.9% 100 ML IVPB SCH ×3 (05:40→21:31)
[2022-04-21] MEDS: Furosemide 20 MG/2 ML VIAL SLOW IVP SCH ×2 (05:40→15:50)
[2022-04-21] MEDS: Levothyroxine Sodium 75 MCG TAB PO SCH (05:41)
[2022-04-21] MEDS ORDERED: Magnesium 2 GM/50 ML(in water) 2 GM in Premix Bag 1 BAG IVPB SCH ×2 (06:00→09:00)
[2022-04-21 06:08] LABS: Mean Corpuscular HGB CONC 32.1 g/dL (32.0-36.0); Mean Corpuscular Hemoglobin 30.1 pg (27.0-33.0); Mean Corpuscular Volume 93.6 fl (81.2-95.1); Platelet Count 335 10x3/uL (150-450); RBC Distribution Width 17.6 % (11.5-14.5); Red Blood Cell (RBC) Count 2.66 10x6/uL (4.32-5.72); White Blood Cell (WBC) Count 21.7 10x3/uL (3.5-10.5)
[2022-04-21 06:38] LABS: MDiff Complete? YES
[2022-04-21 07:02] LABS: Lymphocytes 9 % (21-51); Monocytes 6 % (0-10); Neutrophil 85 % (42-75)
[2022-04-21 07:05] LABS: Platelet Morphology Comment Appears Adequate; RBC Morphology Normal
[2022-04-21] MEDS: Heparin 5,000 UNITS/ML VIAL SC SCH (09:35)
[2022-04-21] MEDS: Famotidine 20 MG TAB PO SCH ×2 (09:35→21:30)
[2022-04-21] MEDS: Thiamine 100 MG TAB PO SCH (09:36)
[2022-04-21] MEDS: Potassium Chloride 20 MEQ TAB PO SCH ×2 (09:36→15:50)
[2022-04-21] MEDS: Folic Acid 1 MG TAB PO SCH (09:36)
[2022-04-21] MEDS: Multivit, Therapeutic 1 TAB PO SCH (09:36)
[2022-04-21 10:32] LABS: Thyroid Stimulating Hormone 36.3522 uIU/mL (0.35-4.94)
[2022-04-21 11:41] LABS: CKMB 1.3 ng/mL (0-6.6)
[2022-04-21] MEDS ORDERED: Sodium Bicarbonate 2.5 MEQ/5 ML VIAL ONE (12:40)
[2022-04-21] MEDS ORDERED: Lidocaine 1% PF 5 ML VIAL ONE (12:40)
[2022-04-21 14:40] LABS: T4 2.6 ug/dL (4.87-11.72)
[2022-04-21] MEDS: traMADol HCl 50 MG TAB PO PRN (15:53)
[2022-04-21] MEDS: Ipratropium/Albuterol 3 ML NEB EZPAP SCH ×2 (19:11→22:51)
[2022-04-21] MEDS: Melatonin 3 MG TAB PO SCH (21:30)
[2022-04-21] MEDS: Cyanocobalamin (Vitamin B-12) 1,000 MCG TAB PO SCH (21:30)
[2022-04-21] MEDS: Saccharomyces boulardii 250 MG CAP PO SCH (21:39)
[2022-04-22] MEDS: Ipratropium/Albuterol 3 ML NEB EZPAP SCH ×6 (02:46→23:03)
[2022-04-22] MEDS: CEFAZOLIN 2 GM in Sodium Chloride 0.9% 100 ML IVPB SCH ×3 (05:15→17:26)
[2022-04-22] MEDS: Furosemide 20 MG/2 ML VIAL SLOW IVP SCH ×2 (05:17→17:26)
[2022-04-22] MEDS: Levothyroxine Sodium 75 MCG TAB PO SCH (05:20)
[2022-04-22 05:38] LABS: Anion Gap 11 mmol/L (10-20); BUN (Urea Nitrogen) 14 mg/dL (8.4-25.7); Calc. Creatinine Clearance 145 mL/min (70-130); Calcium 7.7 mg/dL (7.8-10.44); Carbon Dioxide 27 mmol/L (22-29); Chloride 106 mmol/L (98-107); Estimated GFR 113; Glucose 112 mg/dL (70-105); Magnesium 1.8 mg/dL (1.6-2.6); Potassium 3.9 mmol/L (3.5-5.1); Sodium 140 mmol/L (136-145)
[2022-04-22 05:44] LABS: Hemoglobin 8.1 g/dL (13.5-17.5); Mean Corpuscular HGB CONC 31.5 g/dL (32.0-36.0); Mean Corpuscular Hemoglobin 29.8 pg (27.0-33.0); Mean Corpuscular Volume 94.5 fl (81.2-95.1); Mean Platelet Volume 9.8 fl (7.4-10.4); Platelet Count 332 10x3/uL (150-450); RBC Distribution Width 18.3 % (11.5-14.5); Red Blood Cell (RBC) Count 2.72 10x6/uL (4.32-5.72); White Blood Cell (WBC) Count 20.2 10x3/uL (3.5-10.5)
[2022-04-22 05:45] LABS: MDiff Complete? YES
[2022-04-22 06:25] LABS: Lymphocytes 11 % (21-51); Monocytes 6 % (0-10); Neutrophil 83 % (42-75)
[2022-04-22 06:28] LABS: Anisocytosis SLIGHT = 6-15 cells (100X) (0-5/hpf); Macrocytosis SLIGHT = 6-15 cells (100X) (0-5/hpf); Stomatocytes SLIGHT = 2-5 cells (100X) (0-1/hpf)
[2022-04-22 06:29] LABS: Platelet Morphology Comment Appears Adequate
[2022-04-22] MEDS ORDERED: Magnesium 2 GM/50 ML(in water) 2 GM in Premix Bag 1 BAG IVPB SCH (08:00)
[2022-04-22] MEDS: Folic Acid 1 MG TAB PO SCH (09:12)
[2022-04-22] MEDS: traMADol HCl 50 MG TAB PO PRN (09:12)
[2022-04-22] MEDS: Famotidine 20 MG TAB PO SCH ×2 (09:12→21:04)
[2022-04-22] MEDS: Multivit, Therapeutic 1 TAB PO SCH (09:13)
[2022-04-22] MEDS: Thiamine 100 MG TAB PO SCH (09:13)
[2022-04-22] MEDS: Magnesium Oxide 400 MG TAB PO SCH (09:13)
[2022-04-22] MEDS: Potassium Chloride 20 MEQ TAB PO SCH ×2 (09:13→17:26)
[2022-04-22] MEDS: Melatonin 3 MG TAB PO SCH (21:04)
[2022-04-22] MEDS: Cyanocobalamin (Vitamin B-12) 1,000 MCG TAB PO SCH (21:04)
[2022-04-22] MEDS: Saccharomyces boulardii 250 MG CAP PO SCH (21:05)
[2022-04-23] MEDS: Ipratropium/Albuterol 3 ML NEB EZPAP SCH ×5 (03:53→19:22)
[2022-04-23] MEDS: CEFAZOLIN 2 GM in Sodium Chloride 0.9% 100 ML IVPB SCH ×2 (04:16→12:10)
[2022-04-23] MEDS: Levothyroxine Sodium 75 MCG TAB PO SCH (06:26)
[2022-04-23] MEDS: Furosemide 20 MG/2 ML VIAL SLOW IVP SCH ×2 (06:26→14:45)
[2022-04-23] MEDS ORDERED: Sodium Chloride 0.9% 100 ML ONE (10:11)
[2022-04-23] MEDS: Famotidine 20 MG TAB PO SCH ×2 (10:32→21:38)
[2022-04-23] MEDS: Potassium Chloride 20 MEQ TAB PO SCH ×2 (10:32→17:36)
[2022-04-23] MEDS: Magnesium Oxide 400 MG TAB PO SCH (10:33)
[2022-04-23] MEDS: Folic Acid 1 MG TAB PO SCH (10:33)
[2022-04-23] MEDS: Thiamine 100 MG TAB PO SCH (10:34)
[2022-04-23] MEDS: Multivit, Therapeutic 1 TAB PO SCH (10:34)
[2022-04-23] MEDS: cefTRIAXone\\ROCEPHIN 2 GM in Sodium Chloride 0.9% 100 ML IVPB SCH (14:41)
[2022-04-23 14:54] VITALS: BMI 24.8
[2022-04-23] MEDS: Cyanocobalamin (Vitamin B-12) 1,000 MCG TAB PO SCH (21:38)
[2022-04-23] MEDS: Saccharomyces boulardii 250 MG CAP PO SCH (21:38)
[2022-04-23] MEDS: Melatonin 3 MG TAB PO SCH (21:39)
[2022-04-24] MEDS: Ipratropium/Albuterol 3 ML NEB EZPAP SCH ×7 (02:30→23:24)
[2022-04-24 04:39] LABS: Anion Gap 14 mmol/L (10-20); BUN (Urea Nitrogen) 17 mg/dL (8.4-25.7); Calc. Creatinine Clearance 136 mL/min (70-130); Carbon Dioxide 27 mmol/L (22-29); Chloride 105 mmol/L (98-107); Estimated GFR 111; Glucose 125 mg/dL (70-105); Magnesium 1.8 mg/dL (1.6-2.6); Phosphorus 4.9 mg/dL (2.3-4.7); Potassium 4.9 mmol/L (3.5-5.1); Sodium 141 mmol/L (136-145)
[2022-04-24 04:40] LABS: Hemoglobin 8.6 g/dL (13.5-17.5); Mean Corpuscular HGB CONC 30.3 g/dL (32.0-36.0); Mean Corpuscular Hemoglobin 29.6 pg (27.0-33.0); Mean Corpuscular Volume 97.6 fl (81.2-95.1); Mean Platelet Volume 9.9 fl (7.4-10.4); Platelet Count 423 10x3/uL (150-450); RBC Distribution Width 18.6 % (11.5-14.5); Red Blood Cell (RBC) Count 2.91 10x6/uL (4.32-5.72); White Blood Cell (WBC) Count 25.2 10x3/uL (3.5-10.5)
[2022-04-24 04:45] LABS: MDiff Complete? YES
[2022-04-24 05:33] LABS: Band 1 % (5-11); Lymphocytes 10 % (21-51); Neutrophil 89 % (42-75)
[2022-04-24 05:40] LABS: Anisocytosis SLIGHT = 6-15 cells (100X) (0-5/hpf)
[2022-04-24 05:41] LABS: Microcytosis SLIGHT = 6-15 cells (100X) (0-5/hpf); Ovalocytes SLIGHT = 2-5 cells (100X) (0-1/hpf); Platelet Morphology Comment Appears Adequate; Polychromasia SLIGHT = 2-3 cells (100X) (0-2/hpf)
[2022-04-24] MEDS: Furosemide 20 MG/2 ML VIAL SLOW IVP SCH ×2 (06:06→14:45)
[2022-04-24] MEDS: Levothyroxine Sodium 75 MCG TAB PO SCH (06:06)
[2022-04-24] MEDS ORDERED: Magnesium 2 GM/50 ML(in water) 2 GM in Premix Bag 1 BAG IVPB SCH (08:00)
[2022-04-24] MEDS: Magnesium Oxide 400 MG TAB PO SCH (09:25)
[2022-04-24] MEDS: Famotidine 20 MG TAB PO SCH ×2 (09:25→20:23)
[2022-04-24] MEDS: Thiamine 100 MG TAB PO SCH (09:25)
[2022-04-24] MEDS: Potassium Chloride 20 MEQ TAB PO SCH (09:25)
[2022-04-24] MEDS: Folic Acid 1 MG TAB PO SCH (09:25)
[2022-04-24] MEDS: traMADol HCl 50 MG TAB PO PRN (09:25)
[2022-04-24] MEDS: Multivit, Therapeutic 1 TAB PO SCH (09:26)
[2022-04-24] MEDS: cefTRIAXone\\ROCEPHIN 2 GM in Sodium Chloride 0.9% 100 ML IVPB SCH (14:36)
[2022-04-24] MEDS: Saccharomyces boulardii 250 MG CAP PO SCH (20:23)
[2022-04-24] MEDS: Melatonin 3 MG TAB PO SCH (20:23)
[2022-04-24] MEDS: Cyanocobalamin (Vitamin B-12) 1,000 MCG TAB PO SCH (20:23)
[2022-04-25] MEDS: Ipratropium/Albuterol 3 ML NEB EZPAP SCH ×6 (03:57→23:24)
[2022-04-25 05:04] LABS: Hemoglobin 8.8 g/dL (13.5-17.5); Mean Corpuscular Hemoglobin 29.2 pg (27.0-33.0); Mean Corpuscular Volume 97.3 fl (81.2-95.1); Mean Platelet Volume 10.5 fl (7.4-10.4); Platelet Count 320 10x3/uL (150-450); Red Blood Cell (RBC) Count 3.01 10x6/uL (4.32-5.72); White Blood Cell (WBC) Count 27.7 10x3/uL (3.5-10.5)
[2022-04-25 05:14] LABS: MDiff Complete? YES
[2022-04-25 05:24] LABS: Anion Gap 19 mmol/L (10-20); BUN (Urea Nitrogen) 21 mg/dL (8.4-25.7); Calc. Creatinine Clearance 126 mL/min (70-130); Carbon Dioxide 24 mmol/L (22-29); Chloride 105 mmol/L (98-107); Estimated GFR 108; Glucose 110 mg/dL (70-105); Magnesium 2.2 mg/dL (1.6-2.6); Phosphorus 5.1 mg/dL (2.3-4.7); Potassium 5.6 mmol/L (3.5-5.1); Sodium 142 mmol/L (136-145)
[2022-04-25] MEDS: Furosemide 40 MG TAB PO SCH (05:48)
[2022-04-25] MEDS: Levothyroxine Sodium 75 MCG TAB PO SCH (05:48)
[2022-04-25 06:16] LABS: Lymphocytes 9 % (21-51); Monocytes 5 % (0-10); Neutrophil 86 % (42-75)
[2022-04-25 06:19] LABS: Anisocytosis SLIGHT = 6-15 cells (100X) (0-5/hpf); Macrocytosis SLIGHT = 6-15 cells (100X) (0-5/hpf); Microcytosis SLIGHT = 6-15 cells (100X) (0-5/hpf)
[2022-04-25 06:20] LABS: Polychromasia SLIGHT = 2-3 cells (100X) (0-2/hpf); Stomatocytes SLIGHT = 2-5 cells (100X) (0-1/hpf)
[2022-04-25] MEDS: Famotidine 20 MG TAB PO SCH ×2 (08:57→21:23)
[2022-04-25] MEDS: Magnesium Oxide 400 MG TAB PO SCH (08:57)
[2022-04-25] MEDS: Multivit, Therapeutic 1 TAB PO SCH (08:57)
[2022-04-25] MEDS: Thiamine 100 MG TAB PO SCH (08:57)
[2022-04-25] MEDS: Folic Acid 1 MG TAB PO SCH (08:57)
[2022-04-25] MEDS: cefTRIAXone\\ROCEPHIN 2 GM in Sodium Chloride 0.9% 100 ML IVPB SCH (13:49)
[2022-04-25] MEDS: Cyanocobalamin (Vitamin B-12) 1,000 MCG TAB PO SCH (21:23)
[2022-04-25] MEDS: Melatonin 3 MG TAB PO SCH (21:23)
[2022-04-25] MEDS: Saccharomyces boulardii 250 MG CAP PO SCH (21:23)
[2022-04-26] MEDS: Ipratropium/Albuterol 3 ML NEB EZPAP SCH ×6 (03:20→23:12)
[2022-04-26 04:29] LABS: Hemoglobin 8.8 g/dL (13.5-17.5); MDiff Complete? YES; Mean Corpuscular HGB CONC 30.3 g/dL (32.0-36.0); Mean Corpuscular Hemoglobin 29.8 pg (27.0-33.0); Mean Corpuscular Volume 98.3 fl (81.2-95.1); Mean Platelet Volume 10.3 fl (7.4-10.4); Platelet Count 409 10x3/uL (150-450); RBC Distribution Width 19.8 % (11.5-14.5); Red Blood Cell (RBC) Count 2.95 10x6/uL (4.32-5.72); White Blood Cell (WBC) Count 29.8 10x3/uL (3.5-10.5)
[2022-04-26 04:46] LABS: Anion Gap 15 mmol/L (10-20); BUN (Urea Nitrogen) 24 mg/dL (8.4-25.7); Calc. Creatinine Clearance 117 mL/min (70-130); Carbon Dioxide 26 mmol/L (22-29); Chloride 103 mmol/L (98-107); Estimated GFR 106; Glucose 125 mg/dL (70-105); Potassium 5.1 mmol/L (3.5-5.1); Sodium 139 mmol/L (136-145)
[2022-04-26 05:03] LABS: Anisocytosis SLIGHT = 6-15 cells (100X) (0-5/hpf); Eosinophils 1 % (0-10); Lymphocytes 6 % (21-51); Monocytes 6 % (0-10); Neutrophil 87 % (42-75); Polychromasia SLIGHT = 2-3 cells (100X) (0-2/hpf)
[2022-04-26 05:04] LABS: Platelet Morphology Comment Appears Adequate
[2022-04-26] MEDS: Furosemide 40 MG TAB PO SCH (06:15)
[2022-04-26] MEDS: Levothyroxine Sodium 75 MCG TAB PO SCH (06:15)
[2022-04-26] MEDS: Famotidine 20 MG TAB PO SCH ×2 (09:25→23:00)
[2022-04-26] MEDS: Folic Acid 1 MG TAB PO SCH (09:26)
[2022-04-26] MEDS: Thiamine 100 MG TAB PO SCH (09:26)
[2022-04-26] MEDS: Magnesium Oxide 400 MG TAB PO SCH (09:26)
[2022-04-26] MEDS: Multivit, Therapeutic 1 TAB PO SCH (09:26)
[2022-04-26] MEDS ORDERED: Iopamidol 300 61% 100 ML VIAL FS ONE (10:09)
[2022-04-26] MEDS: Cefepime 2 GM in Sodium Chloride 0.9% 100 ML IVPB SCH (14:46)
[2022-04-26] MEDS: cefTRIAXone\\ROCEPHIN 2 GM in Sodium Chloride 0.9% 100 ML IVPB SCH (14:47)
[2022-04-26] MEDS: Melatonin 3 MG TAB PO SCH (23:00)
[2022-04-26] MEDS: Saccharomyces boulardii 250 MG CAP PO SCH (23:00)
[2022-04-26] MEDS: Cyanocobalamin (Vitamin B-12) 1,000 MCG TAB PO SCH (23:00)
[2022-04-27] MEDS: Cefepime 2 GM in Sodium Chloride 0.9% 100 ML IVPB SCH ×4 (00:10→22:34)
[2022-04-27] MEDS: Ipratropium/Albuterol 3 ML NEB EZPAP SCH ×6 (03:32→23:41)
[2022-04-27 05:08] LABS: Hemoglobin 8.3 g/dL (13.5-17.5); Mean Corpuscular HGB CONC 29.6 g/dL (32.0-36.0); Mean Corpuscular Hemoglobin 30.2 pg (27.0-33.0); Mean Corpuscular Volume 101.8 fl (81.2-95.1); Mean Platelet Volume 10.2 fl (7.4-10.4); Platelet Count 434 10x3/uL (150-450); RBC Distribution Width 20.2 % (11.5-14.5); Red Blood Cell (RBC) Count 2.75 10x6/uL (4.32-5.72); White Blood Cell (WBC) Count 28.2 10x3/uL (3.5-10.5)
[2022-04-27 05:09] LABS: MDiff Complete? YES
[2022-04-27 05:21] LABS: Anion Gap 16 mmol/L (10-20); BUN (Urea Nitrogen) 27 mg/dL (8.4-25.7); Calc. Creatinine Clearance 116 mL/min (70-130); Carbon Dioxide 26 mmol/L (22-29); Chloride 103 mmol/L (98-107); Estimated GFR 106; Glucose 130 mg/dL (70-105); Potassium 5.5 mmol/L (3.5-5.1); Sodium 139 mmol/L (136-145)
[2022-04-27 05:40] LABS: Band 1 % (5-11); Lymphocytes 8 % (21-51); Monocytes 5 % (0-10); Neutrophil 86 % (42-75)
[2022-04-27 05:41] LABS: Anisocytosis SLIGHT = 6-15 cells (100X) (0-5/hpf); Hypochromia SLIGHT = 6-15 cells (100X) (0-5/hpf); Macrocytosis SLIGHT = 6-15 cells (100X) (0-5/hpf); Platelet Morphology Comment Appears Adequate; Polychromasia SLIGHT = 2-3 cells (100X) (0-2/hpf)
[2022-04-27] MEDS: Levothyroxine Sodium 75 MCG TAB PO SCH (06:37)
[2022-04-27] MEDS: Multivit, Therapeutic 1 TAB PO SCH (09:12)
[2022-04-27] MEDS: Magnesium Oxide 400 MG TAB PO SCH (09:12)
[2022-04-27] MEDS: Furosemide 40 MG TAB PO SCH (09:12)
[2022-04-27] MEDS: Famotidine 20 MG TAB PO SCH ×2 (09:12→21:18)
[2022-04-27] MEDS: Thiamine 100 MG TAB PO SCH (09:12)
[2022-04-27] MEDS: Folic Acid 1 MG TAB PO SCH (09:12)
[2022-04-27] MEDS ORDERED: Iopamidol 300 61% 100 ML VIAL FS ONE (10:36)
[2022-04-27] MEDS ORDERED: Lidocaine 1% PF 5 ML VIAL ONE (11:51)
[2022-04-27] MEDS ORDERED: Sodium Bicarbonate 2.5 MEQ/5 ML VIAL ONE (11:52)
[2022-04-27 12:31] LABS: Fluid, pH - Pleural Fld 7.28 (7.60 - 7.66)
[2022-04-27] MEDS: traMADol HCl 50 MG TAB PO PRN (14:25)
[2022-04-27 14:32] LABS: BF Color Red; Body Fluid Source Pleural Fluid; Clarity Hazy (Clear); Tube # EDTA
[2022-04-27 14:44] LABS: Cell Count Non Hematic 5 %
[2022-04-27 14:45] LABS: BF Segmented Neutrophils 54 %; Lymphocytes 41 %
[2022-04-27] MEDS ORDERED: Dexamethasone 4 MG in Sodium Chloride 0.9% 50 ML IVPB SCH ×2 (16:45→21:00)
[2022-04-27] MEDS ORDERED: Dexamethasone 4 mg/ml Vial SLOW IVP SCH (17:00)
[2022-04-27 17:04] LABS: Fluid, Protein 2.4 g/dL (Not Available)
[2022-04-27] MEDS: Cyanocobalamin (Vitamin B-12) 1,000 MCG TAB PO SCH (21:18)
[2022-04-27] MEDS: Dexamethasone 4 mg/ml Vial SLOW IVP SCH (21:18)
[2022-04-27] MEDS: Saccharomyces boulardii 250 MG CAP PO SCH (21:18)
[2022-04-27] MEDS: Melatonin 3 MG TAB PO SCH (21:26)
[2022-04-28] MEDS: Ipratropium/Albuterol 3 ML NEB EZPAP SCH ×6 (04:00→23:22)
[2022-04-28 05:00] LABS: Hemoglobin 10.4 g/dL (13.5-17.5); MDiff Complete? YES; Mean Corpuscular HGB CONC 29.4 g/dL (32.0-36.0); Mean Corpuscular Hemoglobin 30.4 pg (27.0-33.0); Mean Corpuscular Volume 103.5 fl (81.2-95.1); Mean Platelet Volume 10.5 fl (7.4-10.4); Platelet Count 328 10x3/uL (150-450); RBC Distribution Width 20.6 % (11.5-14.5); Red Blood Cell (RBC) Count 3.42 10x6/uL (4.32-5.72); White Blood Cell (WBC) Count 37.8 10x3/uL (3.5-10.5)
[2022-04-28 05:09] LABS: Anion Gap 23 mmol/L (10-20); BUN (Urea Nitrogen) 33 mg/dL (8.4-25.7); Calc. Creatinine Clearance 104 mL/min (70-130); Calcium 7.9 mg/dL (7.8-10.44); Carbon Dioxide 15 mmol/L (22-29); Chloride 104 mmol/L (98-107); Estimated GFR 102; Glucose 140 mg/dL (70-105); Sodium 135 mmol/L (136-145)
[2022-04-28 05:30] LABS: Band 1 % (5-11); Lymphocytes 4 % (21-51); Monocytes 3 % (0-10); Neutrophil 92 % (42-75)
[2022-04-28 05:31] LABS: Anisocytosis SLIGHT = 6-15 cells (100X) (0-5/hpf); Macrocytosis SLIGHT = 6-15 cells (100X) (0-5/hpf); Platelet Morphology Comment Appears Adequate; Polychromasia SLIGHT = 2-3 cells (100X) (0-2/hpf)
[2022-04-28] MEDS: Cefepime 2 GM in Sodium Chloride 0.9% 100 ML IVPB SCH ×3 (06:12→21:23)
[2022-04-28] MEDS: Levothyroxine Sodium 75 MCG TAB PO SCH (06:12)
[2022-04-28] MEDS: Magnesium Oxide 400 MG TAB PO SCH (09:15)
[2022-04-28] MEDS: Multivit, Therapeutic 1 TAB PO SCH (09:15)
[2022-04-28] MEDS: Dexamethasone 4 mg/ml Vial SLOW IVP SCH ×3 (09:15→21:23)
[2022-04-28] MEDS: Thiamine 100 MG TAB PO SCH (09:15)
[2022-04-28] MEDS: Furosemide 40 MG TAB PO SCH (09:15)
[2022-04-28] MEDS: Folic Acid 1 MG TAB PO SCH (09:15)
[2022-04-28] MEDS: Famotidine 20 MG TAB PO SCH ×2 (09:15→21:23)
[2022-04-28 09:37] LABS: Potassium 5.7 mmol/L (3.5-5.1)
[2022-04-28] MEDS ORDERED: Dextrose 50% Abboject 50 ML SYRINGE SLOW IVP SCH (12:00)
[2022-04-28] MEDS ORDERED: Calcium Gluconate 4.6 MEQ in Sodium Chloride 0.9% 100 ML IVPB SCH (12:00)
[2022-04-28] MEDS ORDERED: Insulin Regular 300 UNITS/3 ML VIAL IVP SCH (12:00)
[2022-04-28 13:25] LABS: Anion Gap 16 mmol/L (10-20); BUN (Urea Nitrogen) 37 mg/dL (8.4-25.7); Calc. Creatinine Clearance 99 mL/min (70-130); Calcium 7.8 mg/dL (7.8-10.44); Carbon Dioxide 25 mmol/L (22-29); Chloride 101 mmol/L (98-107); Estimated GFR 101; Glucose 240 mg/dL (70-105); Potassium 4.8 mmol/L (3.5-5.1); Sodium 137 mmol/L (136-145)
[2022-04-28] MEDS: Melatonin 3 MG TAB PO SCH (21:22)
[2022-04-28] MEDS: Saccharomyces boulardii 250 MG CAP PO SCH (21:22)
[2022-04-28] MEDS: Cyanocobalamin (Vitamin B-12) 1,000 MCG TAB PO SCH (21:22)
[2022-04-29] MEDS: Ipratropium/Albuterol 3 ML NEB EZPAP SCH ×5 (03:01→20:00)
[2022-04-29] MEDS: Cefepime 2 GM in Sodium Chloride 0.9% 100 ML IVPB SCH ×2 (05:06→13:51)
[2022-04-29] MEDS: Levothyroxine Sodium 75 MCG TAB PO SCH (05:06)
[2022-04-29 06:43] LABS: Hemoglobin 8.2 g/dL (13.5-17.5); Mean Corpuscular HGB CONC 29.4 g/dL (32.0-36.0); Mean Corpuscular Hemoglobin 29.5 pg (27.0-33.0); Mean Corpuscular Volume 100.4 fl (81.2-95.1); Mean Platelet Volume 10.7 fl (7.4-10.4); Platelet Count 309 10x3/uL (150-450); RBC Distribution Width 21.1 % (11.5-14.5); Red Blood Cell (RBC) Count 2.78 10x6/uL (4.32-5.72); White Blood Cell (WBC) Count 23.3 10x3/uL (3.5-10.5)
[2022-04-29 06:46] LABS: Anion Gap 21 mmol/L (10-20); BUN (Urea Nitrogen) 48 mg/dL (8.4-25.7); Calc. Creatinine Clearance 83 mL/min (70-130); Carbon Dioxide 22 mmol/L (22-29); Chloride 102 mmol/L (98-107); Estimated GFR 85; Glucose 140 mg/dL (70-105); Potassium 5.8 mmol/L (3.5-5.1); Sodium 139 mmol/L (136-145)
[2022-04-29 07:17] LABS: MDiff Complete? YES
[2022-04-29 07:19] LABS: Lymphocytes 6 % (21-51); Monocytes 1 % (0-10); Reactive Lymphocytes 1 % (0-10)
[2022-04-29 07:20] LABS: Band 2 % (5-11); Macrocytosis SLIGHT = 6-15 cells (100X) (0-5/hpf); Neutrophil 90 % (42-75)
[2022-04-29 07:21] LABS: Hypochromia SLIGHT = 6-15 cells (100X) (0-5/hpf); Polychromasia SLIGHT = 2-3 cells (100X) (0-2/hpf)
[2022-04-29 07:22] LABS: Microcytosis SLIGHT = 6-15 cells (100X) (0-5/hpf); Platelet Morphology Comment Appears Adequate
[2022-04-29] MEDS ORDERED: Dextrose 50% Abboject 50 ML SYRINGE SLOW IVP PRN (07:48)
[2022-04-29] MEDS ORDERED: Insulin Regular 300 UNITS/3 ML VIAL IVP SCH (08:00)
[2022-04-29] MEDS ORDERED: Calcium Gluc 4.6 MEQ/10 ML (100 MG/ML) SLOW IVP SCH (08:00)
[2022-04-29] MEDS ORDERED: LOKELMA 10 GM PACKET PO SCH (08:00)
[2022-04-29] MEDS: Dexamethasone 4 mg/ml Vial SLOW IVP SCH ×2 (09:00→13:51)
[2022-04-29] MEDS: Famotidine 20 MG TAB PO SCH (09:01)
[2022-04-29] MEDS: Magnesium Oxide 400 MG TAB PO SCH (09:01)
[2022-04-29] MEDS: Thiamine 100 MG TAB PO SCH (09:01)
[2022-04-29] MEDS: Furosemide 40 MG TAB PO SCH (09:01)
[2022-04-29] MEDS: Multivit, Therapeutic 1 TAB PO SCH (09:01)
[2022-04-29] MEDS: traMADol HCl 50 MG TAB PO PRN (09:01)
[2022-04-29] MEDS: Folic Acid 1 MG TAB PO SCH (09:01)
[2022-04-29 13:09] LABS: Anion Gap 26 mmol/L (10-20); BUN (Urea Nitrogen) 44 mg/dL (8.4-25.7); Calc. Creatinine Clearance 85 mL/min (70-130); Calcium 8.4 mg/dL (7.8-10.44); Carbon Dioxide 20 mmol/L (22-29); Chloride 101 mmol/L (98-107); Estimated GFR 88; Glucose 60 mg/dL (70-105); Sodium 140 mmol/L (136-145)
[2022-04-29 13:35] LABS: Potassium 6.7 mmol/L (3.5-5.1)
[2022-04-29] MEDS ORDERED: Lorazepam 2 MG/ML VIAL SLOW IVP PRN (14:18)
[2022-04-29] MEDS ORDERED: Morphine 2 MG/ML VIAL SLOW IVP PRN (14:29)
[2022-04-29 15:35] VITALS: BP 102/61; TEMP 98
[2022-04-30] MEDS ORDERED: LOKELMA 10 GM PACKET PO SCH (09:00)
== END 2022-04-29 22:30 | disposition expired | DRG 853 ==
LOC: CSHERS 09:30 → CSHTELE 22:30 → CSHIMCU 04-08 10:16 → CSHTELE 04-15 01:45
PROVIDERS: ADMIT Family Medicine; ATTEND Family Medicine
PROC: 3E03329 Introduction of Other Anti-infective into Peripheral Vein, Percutaneous Approach (ICD-10-PCS; 2022-03-29)
PROC: 02HV33Z Insertion of Infusion Device into Superior Vena Cava, Percutaneous Approach (ICD-10-PCS; principal; 2022-04-05)
PROC: B548ZZA Ultrasonography of Superior Vena Cava, Guidance (ICD-10-PCS; 2022-04-05)
PROC: 0JB Subcutaneous Tissue and Fascia, Excision (ICD-10-PCS; 2022-04-09)
PROC: 0R9 Upper Joints, Drainage (ICD-10-PCS; 2022-04-11)
PROC: 02HV33Z Insertion of Infusion Device into Superior Vena Cava, Percutaneous Approach (ICD-10-PCS; 2022-04-21)
PROC: B548ZZA Ultrasonography of Superior Vena Cava, Guidance (ICD-10-PCS; 2022-04-21)
PROC: 0W9B3ZZ Drainage of Left Pleural Cavity, Percutaneous Approach (ICD-10-PCS; 2022-04-27)
DX: A41.51 Sepsis due to Escherichia coli [E. coli] (principal); E43 Unspecified severe protein-calorie malnutrition; K72.00 Acute and subacute hepatic failure without coma; G92.8 Other toxic encephalopathy; I33.0 Acute and subacute infective endocarditis; J96.01 Acute respiratory failure with hypoxia; J15.20 Pneumonia due to staphylococcus, unspecified; G06.0 Intracranial abscess and granuloma; G93.6 Cerebral edema; E87.20 Acidosis, unspecified; N17.9 Acute kidney failure, unspecified; E87.1 Hypo-osmolality and hyponatremia; N18.4 Chronic kidney disease, stage 4 (severe); E87.0 Hyperosmolality and hypernatremia; N39.0 Urinary tract infection, site not specified; A04.72 Enterocolitis due to Clostridium difficile, not specified as recurrent; J90 Pleural effusion, not elsewhere classified; I76 Septic arterial embolism; I47.20 Ventricular tachycardia, unspecified; J98.11 Atelectasis; M86.8X8 Other osteomyelitis, other site; Z66 Do not resuscitate; Z51.5 Encounter for palliative care; I12.9 Hypertensive chronic kidney disease with stage 1 through stage 4 chronic kidney disease, or unspecified chronic kidney disease; R65.20 Severe sepsis without septic shock; A41.01 Sepsis due to Methicillin susceptible Staphylococcus aureus; F17.210 Nicotine dependence, cigarettes, uncomplicated; K52.9 Noninfective gastroenteritis and colitis, unspecified; D69.6 Thrombocytopenia, unspecified; F10.10 Alcohol abuse, uncomplicated; M06.9 Rheumatoid arthritis, unspecified; E83.39 Other disorders of phosphorus metabolism; E03.9 Hypothyroidism, unspecified; E88.09 Other disorders of plasma-protein metabolism, not elsewhere classified; R13.10 Dysphagia, unspecified; Z88.1 Allergy status to other antibiotic agents; Z79.899 Other long term (current) drug therapy; Z90.49 Acquired absence of other specified parts of digestive tract; E83.42 Hypomagnesemia; E87.5 Hyperkalemia; Z20.822 Contact with and (suspected) exposure to COVID-19; Z68.24 Body mass index [BMI] 24.0-24.9, adult
CPT/HCPCS: 32555; 36415; 36416; 36430; 36569; 36600; 70450; 70470; 71045; 71260; 71275; 72125; 72170; 74018; 74176; 74177; 80048; 80053; 80069; 80202; 80306; 80307; 81003; 81015; 82140; 82553; 82805; 82945; 83605; 83615; 83690; 83735; 83880; 83986; 84100; 84157; 84436; 84439; 84443; 84479; 84484; 85025; 85610; 85730; 86140; 86850; 86900; 86901; 87040; 87070; 87077; 87086; 87149; 87186; 87205; 87324; 87449; 87493; 87811; 89051; 93005; 93306; 94640; 94667; 94760; 96361; 96365; 96367; 96372; A4217; C1751; J0610; J0692; J0696; J0744; J1100; J1644; J1815; J1940; J2001; J2060; J2597; J3370; J3411; J3475; J3480; J3490; J7042; J7050; J7070; J7120; J7620; J7999; P9016; Q9967; S0028; U0002